=== PATIENT | female | born 2000 | race Caucasian/White ===

== ENCOUNTER 2023-01-06 01:38 | Outpatient (CLI) | payer SELFPAY ==
--- OUTSIDE RECORDS SUMMARY | 2023-02-05 13:20 | XMS_ITS | Patient Health Record ---
Author Name Unknown Organization [facility] Address [address] [place], [place] [id number] Care Team Providers Care Configuration Developer Name Role Phone Amita Dyer Primary Care Provider Irais Brooks Unavailable [phone] ALLERGIES No Known Allergies REASON FOR REFERRAL [...] Notes Problem Anemia (D64.9) Active confirmed Anemia (609717402) Problem Fibromyalgia affecting multiple sites (M79.7) Active confirmed Fibromyalgia (586145573) Problem Abnormal antibody titer (R76.8) Active confirmed Antibody studie s abnormal (505350870) Problem Moderate major depression (F32.1) Active confirmed Moderate major depression (896386) PLAN OF TREATMENT No Information MEDICAL (GENERAL) HISTORY Medical History History ICD Code Moderate major depression F32.1 ADHD-combined type
== END 2023-01-06 01:39 | disposition home or self-care (01) ==
LOC: AMB 02-05 13:17
PROVIDERS: Visit Provider Internal Medicine
DX: F10.129 Alcohol abuse with intoxication, unspecified (principal); F12.10 Cannabis abuse, uncomplicated
CPT/HCPCS: A0425; A0429

== ENCOUNTER 2023-01-06 01:57 | Emergency (ER) | payer SELFPAY ==
--- NOTE | 2023-01-06 02:04 | ED_ITS ---
HPI - General Adult General Stated complaint: ETOH Time Seen by Provider: 01/06/23 02:01 History of Present Illness HPI narrative: Patient is a 22-year-old woman who was brought in intoxicated from [facility]. She days not able to quantify how much he has had drink tonight. She states that she did not have any injuries. She does not believe that she has been assaulted. She is brought in by EMS. She has no physical complaints other than her intoxication. She is quite tearful and remorseful. No further history available although she does admit to history of anxiety depression as well as traumatic brain injury. Review of Systems Status of ROS: Reports: 10 or more systems reviewed and unremarkable except as noted in History and below Exam Narrative: Exam Narrative: EXAM GENERAL: Patient appears to be modestly intoxicated. EYES: No scleral icterus. LYMPH: No supraclavicular or cervical lymphadenopathy. SKIN: Visible skin seen during exam normal or with benign process only. EXT: No dependent lower extremity pedal edema. HEART: Regular rate and rhythm with no murmurs, rubs, or gallops. LUNGS: Clear to auscultation bilaterally with no crackles or wheezes. ABD: Soft, non tender, non distended. PSYCH: Good eye contact, speech is not pressured. Course Course ED Course: Patient seen examined. She appears to be medically stable and will be observed until she can safely be discharged back to campus. No further testing will be needed unless problems develop. We monitoring her vital signs. Medical Decision Making MDM Narrative Medical decision making narrative: Patient is a 22-year-old woman brought in intoxicated from [facility]. She was observed 1st safe amount of time and now is able to care for herself. She does not appear to be otherwise metabolically abnormal or injured. She is able to go back to the campus at this time but has worn as the dangers of heavy drinking. Differential Diagnosis Differential Diagnosis: Metabolic derangement drug abuse alcohol intoxication Discharge Plan Discharge Clinical Impression: Alcohol intoxication Patient Disposition: Home, Self-Care Condition: Stable Instructions: Alcohol Intoxication (ED) Activity Level: No Restrictions Discharge Diet: Regular Stand Alone Forms: Vital [employer]ner[employer] Info Instructions
[2023-01-06 02:19] VITALS: BP 119/89; PULSE 92; RESP 18; TEMP 36.7; O2SAT 98; BMI 21.9
--- OUTSIDE RECORDS SUMMARY | 2023-01-06 02:32 | XMS_ITS | Continuity of Care Document ---
Author Name Unknown Organization [facility]part[facility] Address [address] [place] [id number] Phone Care Team Providers Care First Cook Name Role Phone Eva ROGEScarlet Unavailable Unavailable Allergies, Adverse Reactions, Alerts Substance Reaction Status Criticality No Known Allergies Active No Inform ation Medications Medication Instructions Dosage Effective Dates (start - stop) Status Comments 04/27 (28) 1 mg-20 mcg (21)/75 mg (7) tablet - Active dextroamphetamine-ampheta mine ER 15 mg 24hr capsule,extend release - Active omeprazole 40 mg capsule,delayed release - Active sertraline 100 mg tablet - A ctive Procedures Procedure Date Prophylaxis-child Top Fluoride Varnish;TX Appl Mod 2019 Comprehensive oral evaluation-new or est ablished P Caries Risk Assessment, Moderate 2019 Dental Sealant Exclusion Bitewings-four films Intraoral-periapical first film 020 Intraoral-periapical each additional hue m FLU VACCINE, 3 YRS & >, IM FLU VACC PANDEMIC FLU VACCINE, 3 YRS & >, IM As per patient privacy policy some of the clinical information may not be visible. Advance Directives Directive Yes / No Effective Date File Name No Information Encounters Encounter Description Practice Location Reason(s) For Visit Diagnoses Date Provider Providers Copied on Encounter [facility], [address] [place] [address], [id number], [place] tel:[phone] P [facility] Dental Dental Visit (chief complaint) Chronic gingivitis, plaque inducedOther dental procedure status Eva Novak. [address] [facility], [place], [place], [id number], [place]. tel:[phone] [facility], [address] [place] [address], [id number], [place] tel:[phone] [facility] No Information [facility] Nurse. [address] [place] [address], [id number], [place]. tel:[phone] [facility], [address] [place] [address], [address], [place] tel:[phone] [facility] [place] [facility] No Information [facility] Nurse. [address] [place] [address], [id number], [place]. tel:[phone] [facility], [address] [place] [address], [id number], [place] tel:[phone] [facility] No Information [facility] Nurse. [address] [place] [address], [id number], [place]. tel:[phone] [facility], [address] [place] [address], [id number], [place] tel:[phone] [facility] No Information [facility]. [address] [place] [address], [id number], [place]. Family History Family Member Type Diagnosis Age At Onset No Information Immunizations Vaccine Date Status Comments Flu (split) (3 yrs or older) administered Source: New Immunization Record Influenza (H1N1) virus vaccine, pandemic formulation administered Source: Ne w Immunization Record Flu (split) (3 yrs or older) administered Source: New Immunization Record Hep A (ped/adol, 2 dose) administered [place] rce: New Immunization Record HEP A VAC PED/ADOL administered Note: LA ; Source: New Immunization Record VARICELLA, PED/ADOLESCENT administered No te: RA ; Source: New Immunization Record VARICELLA, PED/ADOLESCENT administered No te: RA ; Source: New Immunization Record INFLUENZA .50 DOSE administered Note: LA ; Source: New Immunization Record DTAP administered Note: RA ; Sour ce: New Immunization Record [id number], PED/ADL administer ed Note: LA ; Source: New Immunization Record INJECTABLE POLIOVIRUS administered Note: RA ; Source: New Immunization Record HIB 3 DOSE SERIES administered Note: RA ; Source: New Immunization Record PCV7, PNEUMOCOCCAL CONJUGATE administered Note: RA ; Source: New Immunization Record DTAP administered Note: LA ; Sour ce: New Immunization Record VARICELLA, PED/ADOLESCENT administered No te: LA ; Source: New Immunization Record [id number], PED/ADL administer ed Note: LA ; Source: New Immunization Record INFLUENZA VACCINE administered Source: Ne w Immunization Record PCV7, PNEUMOCOCCAL CONJUGATE administered Source: New Immunization Record HEP B VACCINE PED/ADOL administered Note: LA ; Source: New Immunization Record HIB 3 DOSE SERIES administered Note: RT ; Source: New Immunization Record DTAP administered Note: LT ; Sour ce: New Immunization Record INJECTABLE POLIOVIRUS administered Note: LT ; Source: New Immunization Record HIB 3 DOSE SERIES administered Note: LT ; Source: New Immunization Record PCV7, PNEUMOCOCCAL CONJUGATE administered Note: LT ; Source: New Immunization Record DTAP administered Note: RT ; Sour ce: New Immunization Record INJECTABLE POLIOVIRUS administered Note: RT ; Source: New Immunization Record PCV7, PNEUMOCOCCAL CONJUGATE administered Note: LT ; Source: New Immunization Record DTAP administered Note: RT ; Sour ce: New Immunization Record INJECTABLE POLIOVIRUS administered Note: RT ; Source: New Immunization Record HIB AND HEP B COMBO administered Note: LT ; Source: New Immunization Record HEP B VACCINE PED/ADOL administered [facility] e: New Immunization Record Payers Payer name Insurance type Covered green party ID Zara cameron(s) [facility] [place] [id number] Social History Type Description Quantity Date Captured Comments Alcohol Use Details Unknown Caffeine Use Details Unknown Tobacco Use Status No Information Smoking Status No Information Sex Female Gender Identity Choose not to disclose Chief Complaint And Reason For Visit From encounter dated '11/16/2019 14:00'. Dental Visit (chief complaint) Plan Of Treatment Date Type Action Status Goal Pneumococcal vaccine due Goal Flouride varnish application . Due on due Goal Tdap. Due on due Goal HPV (1st). Due on 0 due Goal Hep C [id number]. Due on due Goal HIV. Due on due Goal Depression screening. Due on due Goal Nutritional Screening Assess ment. Due on due Goal Self Management Goals. Due o n due Goal Influenza vaccine. Due on due Goal Health Literacy. Due on due Goal Dental exam. Due on 020 due History Of Present Illness Encounter Date Complaint History Of Prese nt Illness Dental Visit Instructions Date Instruction Additional Infor mation No Information Assessments Type Assessment Date No Information Patient Care Teams Name Effective Dates (start - stop) Status Members No Information
--- OUTSIDE RECORDS SUMMARY | 2023-01-06 02:32 | XMS_ITS | Continuity of Care Document ---
Author Name Unknown Organization [facility] Address [address] [facility] [address] [place] [address] Phone Care Team Providers Care Internal Controls Manager Name Role Phone Amita Dyer MD Unavailable Unavailable Allergies, Adverse Reactions, Alerts Substance Reaction Status Criticality No Known Allergies Active No Inform ation Medications Medication Instructions Dosage Effective Dates (start - stop) Status Comments Wellbutrin XL 300 mg 24 hr tablet, extended release Take 1 tablet by mouth once daily - Active Adderall 10 mg tablet take 1 Tablet by oral route every afternoon 10 MG - Active Adderall XR 15 mg capsule,extended release take 1 capsule by oral route every day in the morning upon awakening 15 MG - Active albuterol sulfate HFA 90 mcg/actuation aerosol inhaler INHALE 2 PUFFS BY MOUTH EVERY 4 TO 6 HOURS NEEDED - Active sertraline 100 mg tablet TAKE 1 & 1/2 (ONE & ONE-HALF) TABLETS BY MOUTH ONCE DAILY - Active doxycycline hyclate 100 mg tablet take 1 tablet by oral route 2 times every day 100 MG - Active Microgestin FE 1/20 (28) 1 mg-20 mcg (21)/75 mg (7) tablet Take 1 tablet by mouth once daily - Active take Continuously, skip placebo Zyrtec 10 mg tablet take 1 tablet by oral route every day 10 MG - Active Omeprazole 40 MG Oral Capsule Delayed Release TAKE 1 CAPSULE BY MOUTH ONCE DAILY BEFORE A MEAL - Active Slow Fe 142 mg (45 mg iron) tablet,extended release take 1 Tablet by Oral route 2 times every day 1 Tablet - Active Procedures Procedure Date Office/outpatient visit,est, mod 2022 Office/outpatient visit,est, mod 2022 Office/outpatient visit,est, mod 2021 Office/outpatient visit,est, mod 2021 Preventive checkup, est,18-39 yrs Office/outpatient visit,est, mod 2021 Office/outpatient visit,est, mod 2021 Office/outpatient visit,est, mod 2021 Office/outpatient visit,est, mod 2021 Office/outpatient visit,est, mod 2021 Office/outpatient visit,est, mod 2020 Office/outpatient visit,est, mod 2020 Preventive checkup, est,18-39 yrs Office/outpatient visit,est, high Less Than 24 Hour Notice Office/outpatient visit,est, mod 2020 Office/outpatient visit,est, mod 2020 Office/outpatient visit,est, mod 2019 Office/outpatient visit,est, mod 2019 Office/outpatient visit,est, mod 2019 Preventive checkup, est,18-39 yrs Office/outpatient visit,est, mod 2019 BODY MASS INDEX DOCD Level Of Activity Assess Office/outpatient visit,est, mod 2019 Airway inhalation treatment Office/outpatient visit,est, mod 2019 Office/outpatient visit,est, mod 2018 IMADM ANY ROUTE 1ST VAC/TOX FLU VAC NO PRSV 4 JORGE 3 YRS+ Office/outpatient visit,est, mod 2018 Preventive checkup, est,12-17 yrs Office/outpatient visit,est, mod 2018 Office/outpatient visit,est, mod 2018 Airway inhalation treatment Office/outpatient visit,est, high Office/outpatient visit,est, mod 2018 MENINGOCOCCAL VACCINE, IM IMADM ANY ROUTE 1ST VAC/TOX FLU VAC NO PRSV 4 JORGE 3 YRS+ Office/outpatient visit,est, mod 2017 IMADM ANY ROUTE 1ST VAC/TOX Gardasil 9 Office/outpatient visit,est, mod 2017 Preventive checkup, est,12- yrs Office/outpatient visit,est, mod 2017 Office/outpatient visit,est, mod 2017 Office/outpatient visit,est, mod 2017 Urinalysis, non-automated, w/scope Airway inhalation treatment Office/outpatient visit,est, high Preventive checkup, est,12- yrs Office/outpatient visit,est, mod 2016 Urinalysis, non-automated, w/scope Office/outpatient visit,new, low 2016 Collection Of Venous Blood By Venipunctu re Advance Directives Directive Yes / No Effective Date File Name No Information Encounters Encounter Description Practice Location Reason(s) For Visit Diagnoses Date Provider Providers Copied on Encounter [facility], [address] [place] [address], [id number], [place] tel:[phone] Amita Dyer M.D. No Information 3 Manisha Levi. [address] [place] [address], [address], [id number] , [place]. tel:[phone] Office/outpa tient visit,est, mod [facility], [address] [place] [address], [id number], tel:[phone] Telehealth Virtual Visit (chief complaint) Attention-defi cit hyperactivity disorder, combined type 3 Manisha Levi. [address] [place] [address], [address] [facility], [place], [place], [id number] , [place]. tel: [phone] Referring Provider: Amita Reynolds, [address] [place] [address] [facility], [place], [address] . tel:[phone] [facility], [address] [place] [address], [id number], tel:[phone] Amita Dyer M.D. No Information 3 Manisha Levi. [address] [place] [address], [id number] , . tel: [phone] [facility], [address] [place] [address], [id number], tel:[phone] Amita Dyer M.D. No Information 3 Manisha Levi. [address] [place] [address], [id number] , [place]. tel: [phone] Office/outpa tient visit,est, [facility], [address] [place] [address], [id number], [place] tel:[phone] Telehealth Virtual Visit (chief complaint) Major depressive disorder, single episode, moderateAttent ion-deficit hyperactivity disorder, combined typeFibromyalg iaOther acne 3 Manisha Levi. [address] [place] [address], [id number] , [place]. tel: [phone] Referring Provider: Amita Reynolds, [address] [place] [address] [place] [address], [id number] . tel:[phone] Office/outpa tient visit,[facility], [address] [place] [address], [id number], tel:[phone] Telehealth Virtual visit (chief complaint) COVID-19Other acne 2 Manisha Levi. [address] [place] [address], [place], [place], [id number] , [place]. tel:[phone] Referring Provider: Amita Reynolds, [address] [place] [address] [facility], [place], [address] . tel:[phone] Office/outpa tient visit,[facility], [address] [place] [address], [id number], tel:[phone] Telehealth Virtual Visit (chief complaint) Major depressive disorder, single episode, moderateAttent ion-deficit hyperactivity disorder, combined typeSystemic lupus erythematosus, unspecified 2 Manisha Levi. [address] [place] [address], [address] [place] [address], [id number] , [place]. tel:[phone] Referring Provider: Amita Reynolds, [address] [place] [address] [facility], [place], [address] . tel:[phone] Preventive checkup, [facility],18-39 yrs [facility], [address] [place] [address], [id number], tel:[phone] Amita Dyer M.D. preventive exam - physical (chief complaint) Encounter for general adult medical examination without abnormal findingsMajor depressive disorder, single episode, moderateAttent ion-deficit hyperactivity disorder, combined typeSystemic lupus erythematosus, unspecifiedFib romyalgiaEncnt r screen for infections w sexl mode of transmissAller gic rhinitis 2 Manisha Levi. [address] [place] [address], [address], [id number] , . tel:[phone] Referring Provider: Amita Reynolds, [address] [facility] [address], [place], [address] . tel:[phone] Office/outpa tient visit,[facility], [address] [place] [address], [id number], tel:[phone] Telehealth Virtual Visit (chief complaint) Major depressive disorder, single episode, moderateAttent ion-deficit hyperactivity disorder, combined type 2 Manisha Levi. [address] [place] [address], [address], [place], [place], [id number] , [place]. tel:[phone] Referring Provider: Amita Reynolds, [address] [facility] [address] [facility], [place], [address] . tel:[phone] [facility], [address] [place] [address], [id number], [place] tel:[phone] Amita Dyer M.D. No Information 2 Manisha Levi. [address] [place] [address], [address], [id number] , [place]. tel:[phone] Office/outpa tient visit,[facility], [address] [place] [address], [id number], tel:[phone] Telehealth virtual visit (chief complaint) Major depressive disorder, single episode, moderateAttent ion-deficit hyperactivity disorder, combined type 2 Manisha Levi. [address] [place] [address], [address], [id number] , [place]. [phone] Referring Provider: Amita Reynolds, [address] [facility] [address], [place], [address] . tel:[phone] Office/outpa tient visit,[facility], [address] [place] [address], [id number], [place] tel:[phone] Telehealth Virtual Visit (chief complaint) Major depressive disorder, single episode, moderateSystem ic lupus erythematosus, unspecifiedFib romyalgia 2 Manisha Levi. [address] [facility], [address], [place], [place], [id number] , [place]. tel:[phone] Referring Provider: Amita Reynolds, [address] [place] [address] [facility], [place], [address] . tel:[phone] Office/outpa tient visit,[facility], [address] [place] [address], [id number], [place] tel:[phone] Telehealth Virtual visit (chief complaint) Major depressive disorder, single episode, moderateAttent ion-deficit hyperactivity disorder, combined typeSystemic lupus erythematosus, unspecifiedFib romyalgia 2 Manisha Levi. [address] [place] [address], [address], [place], [place], [id number] , [place]. tel:[phone] Referring Provider: Amita Reynolds, [address] [place] [address] [facility], [place], [address] . tel:[phone] Office/outpa tient visit,[facility], [address] [place] [address], [id number], tel:[phone] Telehealth Virtual visit (chief complaint) Major depressive disorder, single episode, moderateAttent ion-deficit hyperactivity disorder, combined type 1 Manisha Levi. [address] [facility], [address], [place], [place], [id number] , [place]. [phone] Referring Provider: Amita Reynolds, [address] [facility] [address], [place], [address] . tel:[phone] Office/outpa tient visit,[facility], [address] [place] [address], [id number], tel:[phone] Telehealth Virtual Visit (chief complaint) Major depressive disorder, single episode, moderateAttent ion-deficit hyperactivity disorder, combined typeFibromyalg iaAnemia, unspecified 1 Manisha Levi. [address] [facility], [address], [place], [place], [id number] , . tel:[phone] Referring Provider: Amita Reynolds, [address] [place] [address] [address], [place], [address] . tel:[phone] Preventive checkup, est,18-40 yrs [facility], [address] [place] [address], [id number], tel:[phone] Amita Dyer M.D. preventive exam - physical (chief complaint) Encounter for general adult medical examination without abnormal findingsMajor depressive disorder, single episode, moderateAttent ion-deficit hyperactivity disorder, combined typeDysmenorrh eaGERD w/o esophagitisVom itingAnemia, unspecifiedAll ergic rhinitisFibrom yalgia 1 Manisha Levi. [address] [place] [address], [address], [id number] , . tel:[phone] Referring Provider: Amita Reynolds, [address] [place] [address] [place] [address], [address] . tel:[phone] [facility], [address] [place] [address], [id number], tel:[phone] Amita Dyer M.D. No Information 1 Manisha Levi. [address] [place] [address], [id number] , . tel:[phone] Referring Provider: Amita Reynolds, [address] [place] [address], [address] . tel:[phone] Office/outpa tient visit,[facility], [address] [place] [address], [id number], [place] tel:[phone] Amita Dyer M.D. Leg Pain (chief complaint) MyalgiaParesth esia of skinLow back pain Ignacio-2 1 Manisha Levi. [address] [place] [address], [place], [place], [id number] , [place]. tel:[phone] Referring Provider: Amita Reynolds, [address] [place] [address], [place], [address] . tel:[phone] Office/outpa tient visit,[facility], [address] [place] [address], [id number], [place] tel:[phone] Telehealth depression (chief complaint) Major depressive disorder, single episode, moderateAttent ion-deficit hyperactivity disorder, combined type Fe-0 1 Manisha Levi. [address] [place] [address], [id number] , [place]. tel:[phone] Referring Provider: Amita Reynolds, [address] [place] [address] [facility], [place], [address] . tel:[phone] Office/outpa tient visit,[facility], [address] [place] [address], [id number], tel:[phone] Amita Dyer M.D. vaginal sores (chief complaint) DysuriaCandidi asis of vulva and vagina 0 Manisha Levi. [address] [place] [address], [id number] , [place]. tel:[phone] Referring Provider: Amita Reynolds, [address] [place] [address], [place], [address] . tel:[phone] Office/outpa tient visit,[facility], [address] [place] [address], [id number], [place] tel:[phone] Telehealth Virtual visit (chief complaint) Acute tonsillitis, unspecified 0 Manisha Levi. [address] [facility], [address], [place], [place], [id number] , [place]. tel:[phone] Referring Provider: Amita Reynolds, [address] [place] [address] [address], [place], [address] . tel:[phone] Office/outpa tient visit,[facility], [address] [place] [address], [id number], [place] tel:[phone] Telehealth Virtual Visit (chief complaint) Attention-defi cit hyperactivity disorder, combined typeDysmenorrh eaAcute tonsillitis, unspecified 0 Manisha Levi. [address] [place] [address], [address], [place], [place], [id number] , [place]. [phone] Referring Provider: Amita Reynolds, [address] [place] [address] [facility], [place], [address] . tel:[phone] Preventive checkup, [facility],18-39 yrs [facility], [address] [place] [address], [id number], [place] tel:[phone] Amita Dyer M.D. preventive exam - physical (chief complaint) Encntr for general adult medical exam w/o abnormal findingsMajor depressive disorder, single episode, moderateAttent ion-deficit hyperactivity disorder, combined typeAcneDysmen orrheaImpacted cerumen, right earBody mass index (BMI) 21.0-21.9, adult Aug- 0 Manisha Levi. [address] [place] [address], [address], [place], [id number] , . tel:[phone] Referring Provider: Amita Reynolds, [address] [place] [address], [place], [address] . tel:[phone] Office/outpa tient visit,[facility], [address] [place] [address], [id number], tel:[phone] Amita Dyer M.D. Follow Up of meds (chief complaint) Major depressive disorder, single episode, moderateAttent ion-deficit hyperactivity disorder, combined typeGERD w/o esophagitis 0 Manisha Levi. [address] [place] [address], [id number] , [place]. tel:[phone] Referring Provider: Amita Reynolds, [address] [place] [address], [place], [address] . tel:[phone] Office/outpa tient visit,[facility], [address] [place] [address], [id number], tel:[phone] Amita Dyer M.D. cough (chief complaint) Acute bronchitis, unspecifiedImp acted cerumen, right earPallor 0 Manisha Levi. [address] [place] [address], [place], [place], [id number] , [place]. [phone] Referring Provider: Amita Reynolds, [address] [place] [address], [place], [address] . tel:[phone] Office/outpa tient visit,[facility], [address] [place] [address], [id number], [place] tel:[phone] Amita Dyer M.D. Follow Up of anxiety/dep ression (chief complaint)s inus infection (chief complaint) Major depressive disorder, single episode, moderateAttent ion-deficit hyperactivity disorder, combined typeAcute sinusitis, unspecified 9 Manisha Levi. [address] [place] [address], [address] [facility], [place], [place], [id number] , . [phone] Referring Provider: Amita Reynolds, [address] [place] [address], [place], [address] . tel:[phone] Office/outpa tient visit,[facility], [address] [place] [address], [id number], [phone] Amita Dyer M.D. depressed (chief complaint) Major depressive disorder, single episode, moderate 9 Manisha Levi. [address] [place] [address], [id number] , [place]. tel:[phone] Referring Provider: Amita Reynolds, [address] [place] [address], [place], [address] . tel:[phone] Preventive checkup, [facility],12-17 yrs [facility], [address] [place] [address], [id number], tel:[phone] Amita Dyer M.D. Well child (chief complaint) Encntr for routine child health exam w/o abnormal findingsMajor depressive disorder, single episode, moderateAttent ion-deficit hyperactivity disorder, combined typeGERD w/o esophagitisLum p in the left breast 9 Manisha Levi. [address] [place] [address], [id number] , [place]. tel:[phone] Referring Provider: Amita Reynolds, [address] [place] [address], [place], [address] . tel:[phone] Office/outpa tient visit,[facility], [address] [place] [address], [id number], tel:[phone] Amita Dyer M.D. Follow Up of depression (chief complaint) Major depressive disorder, single episode, moderateAttent ion-deficit hyperactivity disorder, combined typeLump in the left breast 9 Manisha Levi. [address] [place] [address], [id number] , . tel:[phone] Referring Provider: Amita Reynolds, [address] [place] [address], [address] . tel:[phone] Office/outpa tient visit,[facility], [address] [place] [address], [id number], [place] tel:[phone] Amita Dyer M.D. Cough (chief complaint) Acute bronchitis, unspecifiedMaj or depressive disorder, single episode, moderatePneumo darci 9 Manisha Levi. [address] [place] [address], [id number] , [place]. [phone] Referring Provider: Amita Reynolds, [address] [place] [address], [address] . tel:[phone] Office/outpa tient visit,[facility], [address] [place] [address], [id number], [place] tel:[phone] Amita Dyer M.D. Follow Up of Anxiety (chief complaint) Major depressive disorder, single episode, moderateAttent ion and concentration deficitGERD w/o esophagitis 9 Manisha Levi. [address] [place] [address], [id number] , [place]. tel:[phone] Referring Provider: Amita Reynolds, [address] [place] [address], [address] . tel:[phone] Office/outpa tient visit,[facility], [address] [place] [address], [id number], tel:[phone] Amita Dyer M.D. Meds Check (chief complaint) Panic attackAttentio n and concentration deficitGERD w/o esophagitisEnc ounter for immunizationMa chuy depressive disorder, single episode, moderate 8 Manisha Levi. [address] [place] [address], [id number] , [place]. tel:[phone] Referring Provider: Amita Reynolds, [address] [place] [address], [place], [address] . tel:[phone] Office/outpa tient visit,[facility], [address] [place] [address], [id number], tel:[phone] Amita Dyer M.D. well child exam (chief complaint) Encntr for routine child health exam w/o abnormal findingsMajor depressive disorder, single episode, unspecifiedGER D w/o esophagitisAcn e 8 Manisha Levi. [address] [place] [address], [id number] , [place]. tel:[phone] Referring Provider: Amita Reynolds, [address] [place] [address], [address] . tel:[phone] Office/outpa tient visit,[facility], [address] [place] [address], [id number], [place] tel:[phone] Amita Dyer M.D. vomiting (chief complaint) Right lower quadrant painVomiting 8 Manisha Levi. [address] [place] [address], [id number] , [place]. tel:[phone] Referring Provider: Amita Reynolds, [address] [place] [address], [address] . tel:[phone] Office/outpa tient visit,[facility], [address] [place] [address], [id number], tel:[phone] Amita Dyer M.D. Follow Up of Sertaline (chief complaint) Major depressive disorder, single episode, unspecifiedGER D w/o esophagitisAcn e 8 Manisha Levi. [address] [place] [address], [id number] , . tel:[phone] Referring Provider: Amita Reynolds, [address] [place] [address], [address] . tel:[phone] Office/outpa tient visit,[facility], [address] [place] [address], [id number], tel:[phone] Amita Dyer M.D. Prod cough/sinus (chief complaint) Acute sinusitis, unspecifiedAcn e 8 Manisha Levi. [address] [place] [address], [id number] , . tel:[phone] Referring Provider: Amita Reynolds, [address] [place] [address], [address] . tel:[phone] Office/outpa tient visit,[facility], [address] [place] [address], [id number], tel:[phone] Amita Dyer M.D. Follow Up of sertaline (chief complaint)c ongestion (chief complaint)p ossible yeast infection (chief complaint) DepressionAcut e bronchitis, unspecifiedGER D w/o esophagitisDys uriaCandidal vulvovaginitis 7 Manisha Levi. [address] [place] [address], [id number] , . [phone] Referring Provider: Amita Reynolds, [address] [place] [address] [facility], [place], [address] . tel:[phone] Preventive checkup, est,12-17 yrs [facility], [address] [place] [address], [id number], tel:[phone] Amita Dyer M.D. well child exam (chief complaint) Encntr for routine child health exam w/o abnormal findingsVomiti ngDepression Manisha Levi. [address] [place] [address], [id number] , . [phone] Referring Provider: Amita Reynolds, [address] [place] [address], [place], [address] . tel:[phone] Office/outpa tient visit,[facility], [address] [place] [address], [id number], tel:[phone] Amita Dyer M.D. vomiting (chief complaint) Urinary tract infection, site not specifiedVomit ingUpper abdominal pain Manisha Levi. [address] [place] [address], [id number] , . tel:[phone] Referring Provider: Amita Reynolds, [address] [place] [address] [facility], [place], [address] . tel:[phone] Family History Family Member Type Diagnosis Age At Onset Mother Problem Anxiety Father Problem (finding) Family history unknown Maternal grandfather Problem (finding) Cardiovascular disease 40 Mother Problem (finding) malignant neop lasm of breast in first degree relative Family h/o Problem (finding) malignant neoplasm of o vary Immunizations Vaccine Date Status Comments SARS-COV-2 (COVID-19) vaccin e, mRNA, spike protein, LNP, preservative free, 30 mcg/0.3mL dose (State) administered Source: Other Provid er SARS-COV-2 (COVID-19) vaccin e, mRNA, spike protein, LNP, preservative free, 30 mcg/0.3mL dose (Pfizer) administered Source: Other Provid er SARS-COV-2 (COVID-19) vaccin e, mRNA, spike protein, LNP, preservative free, 30 mcg/0.3mL dose (State) administered Source: Other Provid er Fluzone preservative free administered So urce: New Immunization Record Influenza, injectable, quadrivalent, preservative free, split virus, 3 years and older, Fluzone Quad Y administered Source: N ew Immunization Record Meningococcal MCV4O administered Source: New Immunization Record HPV (9-valent) administered Source: New I mmunization Record Human Papillomavirus 9-jeffrey t vaccine administered Source: Other Provid er Meningococcal MCV4O administered Source: Other Provider Tdap administered Source: Other P rovider hepatitis A vaccine, pediatric/adolescent dosage, 2 dose schedule administered Source: Other Provid er varicella virus vaccine administered Sour ce: Other Provider Hep A (ped/adol, 2 dose) administered Helena rce: Other Provider measles, mumps and rubella virus vaccine administered Source: Other Provid er poliovirus vaccine, inactivated administe red Source: Other Provider diphtheria, tetanus toxoids and acellular pertussis vaccine administered Source: Othe r Provider diphtheria, tetanus toxoids and acellular pertussis vaccine administered Source: Othe r Provider pneumococcal conjugate vacci ne, 7 valent administered Source: Other Provid er Varicella administered Source: Other P rovider Haemophilus influenzae type b vaccine, conjugate unspecified formulation administered Source: Other Provid er diphtheria, tetanus toxoids and acellular pertussis vaccine administered Source: Othe r Provider MMR administered Source: Other P rovider pneumococcal conjugate vacci ne, 7 valent administered Source: Other Provid er hepatitis B vaccine, pediatr ic or pediatric/adolescent dosage administered Source: O ther Provider Haemophilus influenzae type b vaccine, conjugate unspecified formulation administered Source: Other Provid er poliovirus vaccine, inactivated administe red Source: Other Provider pneumococcal conjugate vacci ne, 7 valent administered Source: Other Provid er Haemophilus influenzae type b vaccine, conjugate unspecified formulation administered Source: Other Provid er poliovirus vaccine, inactivated administe red Source: Other Provider diphtheria, tetanus toxoids and acellular pertussis vaccine administered Source: Othe r Provider pneumococcal conjugate vacci ne, 7 valent administered Source: Other Provid er hepatitis B vaccine, pediatr ic or pediatric/adolescent dosage administered Source: O ther Provider Hib (PRP-T) administered Source: Other P rovider Polio, Inactive administered Source: Othe r Provider DTaP administered Source: Other P rovider Hep B (ped/adol, 3 dose) administered Helena rce: Other Provider Payers Payer name Insurance type Covered republican ID Authoriza tion(s) [place] [employer] [id number] [facility] BL [id number] [id number] [id number] BL [id number] Social History Type Description Quantity Date Captured Comments Alcohol Use Details Caffeine Use Details coffee and green tea 2 cups per day A Tobacco Use Status Current non-smoker Smoking Status never smoker Sex Female Chief Complaint And Reason For Visit No Information Reason For Referral Reason For Referral No Information Plan Of Treatment Date Type Action Status Goal Tdap due Goal H&P. Due on due Goal Hepatitis C scre ening. Due on due Goal HPV (1st) due Goal Depression scree john. Due on due Goal HPV (2nd) due Goal Influenza vaccin e. Due on due Goal TAX ECONOMIST exam. Due on due Goal PAP. Due on due Goal Unhealthy drug u se screening. Due on due Goal Depression scree john. Due on due Goal Unhealthy drug u se screening. Due on due Goal Influenza vaccin e. Due on due Goal HPV (2nd) due Goal Hepatitis C scre ening. Due on due Goal HPV (1st) due Goal TAX ECONOMIST exam. Due on due Goal PAP. Due on due Goal H&P. Due on due Goal Tdap due Goal Hepatitis C scre ening. Due on due Goal H&P. Due on due Goal TAX ECONOMIST exam. Due on due Goal Tdap due Goal HPV (1st) due Goal Influenza vaccin e. Due on due Goal Depression scree john. Due on due Goal PAP. Due on due Goal HPV (2nd) due Goal Unhealthy drug u se screening. Due on due Goal TAX ECONOMIST exam. Due on due Goal PAP. Due on due Goal HPV (1st) due Goal HPV (2nd) due Goal Unhealthy drug u se screening. Due on due Goal Hepatitis C scre ening. Due on due Goal Influenza vaccin e. Due on due Goal Tdap due Goal H&P. Due on due Goal Depression scree john. Due on due Goal Hepatitis C scre ening. Due on due Goal HPV (2nd) due Goal TAX ECONOMIST exam. Due on due Goal Tdap due Goal Unhealthy drug u se screening. Due on due Goal PAP. Due on due Goal H&P. Due on due Goal Depression scree john. Due on due Goal HPV (1st) due Goal Influenza vaccin e. Due on due Goal Depression scree john. Due on due Goal HPV (2nd) due Goal Unhealthy drug u se screening. Due on due Goal TAX ECONOMIST exam. Due on due Goal HPV (1st) due Goal Fluoride varnish application. Due on due Goal H&P. Due on due Goal Hepatitis C scre ening. Due on due Goal Tdap due Goal Influenza vaccin e. Due on due Goal Tdap due Goal H&P. Due on due Goal Hepatitis C scre ening. Due on due Goal HPV (2nd) due Goal Unhealthy drug u se screening. Due on due Goal TAX ECONOMIST exam. Due on due Goal Fluoride varnish application. Due on due Goal Influenza vaccin e. Due on due Goal Depression scree john. Due on due Goal HPV (1st) due Goal Tdap due Goal TAX ECONOMIST exam. Due on due Goal HPV (1st) due Goal Unhealthy drug u se screening. Due on due Goal H&P. Due on due Goal Fluoride varnish application. Due on due Goal Influenza vaccin e. Due on due Goal HPV (2nd) due Goal Depression scree john. Due on due Goal Hepatitis C scre ening. Due on due Goal Depression scree john. Due on due Goal Influenza vaccin e. Due on due Goal TAX ECONOMIST exam. Due on due Goal Fluoride varnish application. Due on due Goal Hepatitis C scre ening. Due on due Goal H&P. Due on due Goal HPV (1st) due Goal Tdap due Goal HPV (2nd) due Goal Unhealthy drug u se screening. Due on due Goal Influenza vaccin e. Due on due Goal Depression scree john. Due on due Goal Fluoride varnish application. Due on due Goal Tdap due Goal Pneumococcal vaccine due Goal H&P. Due on due Goal TAX ECONOMIST exam. Due on due Goal HPV (2nd) due Goal HPV (1st) due Goal HPV (2nd) due Goal Influenza vaccin e. Due on due Goal Pneumococcal vaccine due Goal TAX ECONOMIST exam. Due on due Goal Fluoride varnish application. Due on due Goal HPV (1st) due Goal H&P. Due on due Goal Tdap due Goal Depression scree john. Due on due Goal Influenza vaccin e. Due on due Goal Fluoride varnish application. Due on due Goal Tdap due Goal H&P. Due on due Goal HPV (2nd) due Goal Pneumococcal vaccine due Goal Depression scree john. Due on due Goal TAX ECONOMIST exam. Due on due Goal HPV (1st) due Goal Fluoride varnish application. Due on due Goal HPV (1st) due Goal Tdap due Goal TAX ECONOMIST exam. Due on due Goal Influenza vaccin e. Due on due Goal HPV (2nd) due Goal H&P. Due on due Goal Depression scree john. Due on due Goal Pneumococcal vaccine due Goal Influenza vaccin e. Due on due Goal Pneumococcal vaccine due Goal Fluoride varnish application. Due on due Goal Tdap due Goal Depression scree john. Due on due Goal HPV (2nd) due Goal H&P. Due on due Goal HPV (1st) due Goal TAX ECONOMIST exam. Due on due Goal HPV (1st) due Goal Pneumococcal vaccine due Goal Depression scree john. Due on due Goal TAX ECONOMIST exam. Due on due Goal HPV (2nd) due Goal Fluoride varnish application. Due on due Goal Tdap due Goal Influenza vaccin e. Due on due Goal H&P. Due on due Goal Fluoride varnish application. Due on due Goal Depression scree john. Due on due Goal TAX ECONOMIST exam. Due on due Goal H&P. Due on due Goal Pneumococcal vaccine due Goal Tdap due Goal HPV (2nd) due Goal HPV (1st) due Goal Influenza vaccin e. Due on due Goal H&P. Due on due Goal TAX ECONOMIST exam. Due on due Goal Pneumococcal vaccine due Goal Influenza vaccin e. Due on due Goal Depression scree john. Due on due Goal Tdap due Goal HPV (1st) due Goal Fluoride varnish application. Due on due Goal HPV (2nd) due Goal Tdap due Goal TAX ECONOMIST exam. Due on due Goal H&P. Due on due Goal Fluoride varnish application. Due on due Goal HPV (1st) due Goal Influenza vaccin e. Due on due Goal Depression scree john. Due on due Goal Pneumococcal vaccine due Goal HPV (2nd) due Goal HPV (1st) due Goal Influenza vaccin e. Due on due Goal Depression scree john. Due on due Goal Fluoride varnish application. Due on due Goal Pneumococcal vaccine due Goal TAX ECONOMIST exam. Due on due Goal H&P. Due on due Goal HPV (2nd) due Goal Tdap due Goal HPV (2nd) due Goal Fluoride varnish application. Due on due Goal Pneumococcal vaccine due Goal Depression scree john. Due on due Goal HPV (1st) due Goal TAX ECONOMIST exam. Due on due Goal Tdap due Goal H&P. Due on due Goal Influenza vaccin e. Due on due Goal Depression scree john. Due on due Goal Influenza vaccin e. Due on due Goal Fluoride varnish application. Due on due Goal H&P. Due on due Goal HPV (2nd) due Goal Pneumococcal vaccine due Goal Tdap due Goal TAX ECONOMIST exam. Due on due Goal HPV (1st) due Goal HPV (2nd) due Goal Influenza vaccin e. Due on due Goal Fluoride varnish application. Due on due Goal Pneumococcal vaccine due Goal H&P. Due on due Goal Tdap due Goal TAX ECONOMIST exam. Due on due Goal Depression scree john. Due on due Goal HPV (1st) due Goal HPV (2nd) due Goal Influenza vaccin e. Due on due Goal Tdap due Goal Fluoride varnish application. Due on due Goal HPV (1st) due Goal Depression scree john. Due on due Goal Pneumococcal vaccine due Goal HPV (2nd) due Goal Tdap due Goal Depression scree john. Due on due Goal Pneumococcal vaccine due Goal Influenza vaccin e. Due on due Goal Fluoride varnish application. Due on due Goal HPV (1st) due Goal HPV (1st) due Goal Pneumococcal vaccine due Goal HPV (2nd) due Goal Tdap due Goal Fluoride varnish application. Due on due Goal Influenza vaccin e. Due on due Goal Depression scree john. Due on due Goal HPV (1st) due Goal Tdap due Goal HPV (2nd) due Goal Depression scree john. Due on due Goal Fluoride varnish application. Due on due Goal Influenza vaccin e. Due on due Goal Pneumococcal vaccine due Goal HPV (1st) due Goal Pneumococcal vaccine due Goal Tdap due Goal HPV (2nd) due Goal Depression scree john. Due on due Goal Influenza vaccin e. Due on due Goal Fluoride varnish application. Due on due Goal Depression scree john. Due on due Goal Tdap due Goal Pneumococcal vaccine due Goal HPV (2nd) due Goal Influenza vaccin e. Due on due Goal HPV (1st) due Goal Fluoride varnish application. Due on due Goal HPV (1st) due Goal Depression scree john. Due on due Goal Influenza vaccin e. Due on due Goal Fluoride varnish application. Due on due Goal Pneumococcal vaccine due Goal HPV (2nd) due Goal Tdap due Referral Ordered: PABLITO KNUTSON -Gastroenterology - Pediatric (related to Vomiting) ordered Referral Ordered: Mariposa Simons (related to Depression) ordered Referral Referred To: Mariposa Simons Ordered: Referrals: Mariposa Simons. Consult ordered Referral Referred To: PABLITO KNUTSON [address] [place] [address], [phone] Ordered: Referrals: Gastroenterology - Pediatric. PABLITO KNUTSON. Consult ordered Future Order: Radiology Order east Ultrasound (unilateral or bilateral) ([id number]), Ordered on: Ordered History Of Present Illness Encounter Date Complaint History Of Prese nt Illness Virtual Visit Patient is here for follow up meds . Virtual Visit done using HIPPAA compliant software. Patient gives verbal consent for visit.Doing great - starting finals this weekLeaving for [place] mid September for analysis internship for 8 weeksUsing addl Adderall when needed - has addl left Virtual Visit Patient is here for follow up meds . Virtual Visit done using HIPPAA compliant software. Patient gives verbal consent for visit.-Patient is doing well. Now takes night class at school and could really use short acting insulin in afternoon. Taking Adderall XR 15 mg daily. Feels that Wellbutrin and Zoloft combination works well now. Planning to spent summer in [place], got excepted for analysis internship in [place].-Saw director of curriculum and started Doxycycline 4 days ago for acne. Using topical medication for angular cheilitis and helping. Virtual visit Patient is here for positive covid test. Virtual visit done using HIPAA compliant software. Patient gives verbal consent for visit.-Congested, has low grade fever and muscle aches. Has a cough but no problems breathing. Has been drinking fluids and drinking Theraflu. Came home from school 2 days ago and got sick same day. Still has one final to complete at home.-She is not on any medications for Lupus. Also worried about cystic acne lesions with scarring on her face. Has had boils with ?fistulas in her groin that get painful at times. Would like to see dermatology. Virtual Visit Patient is here for follow up meds. Virtual Visit done using HIPPAA compliant software. Patient gives verbal consent for visit.Feeling great - meds working really well - likes adjustmentSchool going wellHas lost 10lb with eating better and more motivationStill staying up late - sleeping okADD stable preventive exam - physical Here for physicalNot doing well - more depressed - crying a lot tim at night - still having nightmares - feels worse on higher dose of Zoloft - don't think helpedWorked at summer campWorking out - some cardioDiet healthyStarted drinking alcohol and smoking marijuana at school - was binge drinking at school but has cut down No period with continuous BCP Having wheezing when around friend's cat - some seasonal allergies as wellTook Plaquenil but gained weight on meds and didn't help but also was on Cymbalta at same time and didn't tolerate - still having sensitivity in legs/arms/back - feels sore in legs tim - worse around period - no joint painsHad UTI at school twice Virtual Visit Patient is here for follow up meds. Virtual Visit done using HIPPA compliant software. Patient gives verbal consent for visit.-Patient is doing better with Wellbutrin but it seems to quach off in the evening and mood lower then. Has been having nightmares almost nightly for last 2 weeks-not sure if related to Wellbutrin. No other adverse effects with Wellbutrin. She denies taking any other drugs other than what rx'd. virtual visit Patient is here for medication follow up. Virtual visit done using HIPAA compliant software. Patient gives verbal consent for visit.-Feeling better with Zoloft but still lacks motivation. Getting up in the morning, school work--everything is difficult for her still. Would like to add Wellbutrin as discussed previously. Adderall works well. Has finals next week then will be done for the summer. Plans to travel to with mom and work on the contract job with her. Will spend a month there then back home to spend time with friends. Virtual Visit Patient is here for follow up meds. Virtual visit done due to Covid 19 pandemic. Patient gives verbal consent for visit.-Patient is not doing well. Feeling severely depressed with no motivation to do anything. Feels Cymbalta is not working at all. Wants to switch to Sertraline again. At this time mental health more important to her than pain control with Cymbalta. She has had suicidal thought but no plan and not acted. Not seeing counsellor, he retired. Her family and friends supportive. They make sure she eats and gets out of her room. Grades are good and Adderall seems to be working well. Virtual visit Pt here for med follow up. Virtual visit done due to Covid-19 pandemic. Pt gives verbal consent for virtual visitSchool going well - scary with COVID issues and high numbers at schoolHas gained 25 lb since starting Plaquenil and Celebrex - feels better on meds but weight is frustrating - appetite is much higher - hard on college campus - trying to make good choicesMoods fair - still extreme mood swings - dips at night and feels depressed for last few months - not sure Cymbalta working - overall feels doing well - not seeing counselor but feels doing well working with advisorADD stable - doing well at school Virtual visit Pt here for med follow up. Virtual visit done due to Covid-19 pandemic. Pt gives verbal consent for virtual visit.-Patient is doing much better with higher dose of Cymbalta. Denies side effects. Get counselling through school and doing well at school. Had Covid last month -never had symptoms. Virtual Visit Patient is here for follow up meds. Virtual visit done due to Covid 19 pandemic. Patient gives verbal consent for visit.-Patient is home right now. Exposed to friend with Covid and tested pos beginning of this month. Asymptomatic. Just done with quarantine. Has been anxious and more depressed, especially during quarantine. Has been crying frequently. She is behind on her class work. Going back to School 01/24. Has been seeing Dr Trivedi, pain is under good control. Taking Plaquenil and Celebrex. Taking Cymbalta daily and has been taking iron supplement twice a day for close to 2 mos. Still feeling tired. preventive exam - physical --Melissa mon is doing fair. Was a counsellor at day camp during summer. Worked the [employer]--did a lot of jumping and had fun. She is leaving for college ([place], [place]) next week. Last year went well. Still in daily pain--all muscles hurt. Saw Dr Trivedi last month and had labs but no f/u yet. Was given Prednisone for 7 days and did not help pain. No joint pain, swelling or stiffness. Has been sleeping a lot, still tired. Thinks gained weight and bloated last 2-3 weeks. Takes Ibuprofen or Naproxen for muscle pain but no significant relief. Appetite decreased due to nausea lately, vomiting once a week as before. Has been taking Omeprazole 20 mg instead of 40. Has had EGD a while ago at [facility]. -Depression under fairly good control with Zoloft but missed at least 3 days, ran out. Takes OCPs for painful periods. Does not get significant bleeding now w periods. Notes still gets more muscle pain and some cramping during period week. Leg Pain Onset: 1 month a go. It occurs constantly. Context: there is no injury. Associated symptoms include numbness and tingling in the legs. Additional information: mid lower back pain. - legs feels like muscles sore after working out - occ legs fall asleep - occ some low back painPain to touch of muscles - not really doing exerciseNo significant joint pain - no leg swellingDiet not as healthy - too much junk food - does eat fruits/veggiesOcc blotches on legs when standing - lasts 5 minutesPain affecting ability to walk/sleepDid have leg cramps at the beginning depression Patient is here for follow up meds. Virtual visit done due to Covid-19 virus. Patient gives verbal consent for visit.Doing well at school - hybrid classes Moods overall stableTried additional dose wasn't as helpful - feels XR dose lasts 8-9 hours but 2nd dose didn't help much - wondering if dose too lowPeriods much improved - much less cramps - flow light vaginal sores Patient has been having pain and vaginal lesions for past 6-8 weeks. Never had vaginal intercourse. But had oral sex, last time 2 mos ago. Cuts in vaginal area on and off. Area painful and itchy. No abnormal discharge. On her period now. Has had vaginal itching and burning. Really hurts when urinates. Virtual visit Pt here due to c ont sx of sore throat w/white spots. Took Z Pack 02-23-2020 to 02-27-2020. Had temp last night 99.6 & fatigue. Pt here for virtual visit due to COVID 19 virus. Pt gives verbal consent for virtual visitSore throat much improved but still slt pain Still low grade fever 99-100Feeling fatiguedSlt ear pain persistent but betterSome headache and dec tasteDid COVID test at school which was negative last week Virtual Visit Patient is here for follow up meds. Virtual visit done due to Covid-19 virus. Patient gives verbal consent for visit.[facility] [place]. Sick with sore throat --went to urgent care and to start antibiotic today. Denies cough, fever. Will get COVID test in 2 days at school, tests regularly. -She is requesting short acting Adderall in addition to extended release to help study some afternoons and cram for tests. Tried to arrange her school schedule in am but still needs to study some afternoons. Would take short active med as needed. -Doing well with OCPs, periods regular and cramps are better. Would like to continue. preventive exam - physical Here for physicalGoing to [facility] in [place] - political science/economics Feels moods stable with ZoloftAttention good with Adderall - scheduled morning/early afternoon classes for collegeStkarmanos cancer centerh issues better but needing Prilosec 40mg daily Having severe menstrual cramps with periods last 3 monthsMore acne on back and legs - topical treatments not workingDiet fairly - appetite FitStarhow choir at school Follow Up of meds Patient is fox thao. Anxiety and depression under good control with Zoloft. Not doing well academically. Initially felt Adderall XR 10 mg works well, now gets distracted easily when does homework. Feels wears off by early evening. Failing math. Really worried about her grades. In process of applying for colleges. Was accepted at [employer] but would like to go to college on [facility]. cough Onset: 2 weeks a go. Associated symptoms include chills, fatigue and night sweats. Additional information: bilateral ear pain.Sinus infection in March ?did not clear up completely, did not take Augmentin as prescribed-skipped doses. Not sure which symptoms still had then. [place] chills, muscle aches and vomited New Year's brenden. No fever. Then developed cough, R ear pain. Has decreased hearing R ear. Tried otc cough medication and occasional Ibuprofen. Missed school, 1/2 day yesterday and today. Follow Up of anxiety/depression Here for f/u anxiety/depressionStarted Wellbutrin and took for 2 weeks but then hasn't taken consistently - was also taking for focus only School going great - has all A's - finishing finals this weekStill feeling depressed and tired frequently - feels Wellbutrin caused more fatigueAnxiety at times - slt better Started seeing counselor sinus infection c/o 10 day h/o s ore throat - congestion - ear pressureGreen nasal discharge Sinus pressure and coughDoesn't feel sick Feels not getting better depressed Patient has had no appetite for past 2 weeks. She does not know why she is depressed. She has missed school due to not being able to get out of bed, 4 days this week. Cried at school 11/12-had to leave. She's been stressed about college applications, is done submitting them now. Takes Zoloft daily. Doing well with Adderall, helped to get her grades up, feels a big difference and feels performing at her full potential. Has been getting regular counselling, her counsellor is recovering from hip replacement past 2 weeks. Well child Patient is doing well. Has been studying for ACT and visited colleges this summer. Not sure about what to study, wants to pick a good school first. Going into twelves grade. Will continue with form of physical dense at school this year in place of PE. --Feels stable with Zoloft 100. Seeing counsellor every week. Tried Concerta as needed when studied for tests and helped some but not as well as regular Ritalin. Concerta also some days interfered with her sleep. 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 Has been sick since 3/3 had fever, then felt better. Cough worsen since, stayed home Fru 06/13 back to school Saturday and today--was sent home by the school nurse. Not taking anything for cough. Associated symptoms include wheezing. Additional information: SOB.--Tolerating Wellbutrin well, initially felt better with affect but now feels flat again. Has been on Wellbutrin for 3 weeks. Mood and anxiety seems to be controlled. Follow Up of Anxiety Patient's Z oloft dose increased 03/25 due to Panic attack at school. She initially did well but for last month has been feeling flat/apathic, sleeping more and not concentrating at school. Anxiety is better controlled, has not had panic attacks. She gets accomodation at school and it works for her. Sees therapist once a week most of the time. Meds Check Patient has had challenging few months. Her grandfather and she and her mother had to stay in [place] for a month to help grandmother. Carmela missed a lot of school. They brought her grandmother here and she lives with them. --Patient has been more anxious and had panic attack at school 3 weeks ago. She seemed to have gone to catatonic state and took hours to get back to normal. She has been better since. Catching up at school and seeing her therapist regularly again. Her mood has been affected by her worsening grades. She is getting help at school but complaints of problems concentrating. Her therapist thinks maybe she has elements of ADHD or PTSD following traumatic brain injury.--No problems sleeping or changes in appetite. She denies any thoughts of self harm. Gets upper abdominal discomfort sometimes, no vomiting if takes Omeprazole 40 daily. Symptomatic on 20 mg dose. well child exam Has been doing w ell. Finished 10th grade with As and Bs. Has been a difficult year with health concerns. Has been vomiting less, on Omeprazole 40 mg daily for 6 mos. Tried to decrease the dose but symptoms worsened. Moods are stable on Zoloft. Doing counseling with Magdi Sandra--clicked with him and sessions are helpful. 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 Gets plenty of physical activity. Has not needed to use her inhaler at all this year. Plans to go to [employer] for 2 week leadership program, has gotten scolarship--very excited. Going to see grandparents to [place] after. Chose not to take Drivers ed for now, feels it is difficult to get drivers license now. vomiting Onset: 1 Day ago . Has been vomiting non-stop. Unable to keep anything down. Vomited bile twice during visit. No fever. No exposure to sick persons. No diarrhea. Has abdominal pain. Started before vomiting started. Has not urinated since yesterday, not sure when last time was. LMP: 4 days ago. Follow Up of Sertaline Here for f/u anxietyMoods stable on Zoloft - having some attention issues - grades good but takes longer to finish tests - has been worse last few months - will get focused on one topic and doesn't focus on anything else - told has ADD in past but Adderall caused sleepiness - not sleeping as much - hard to get out bedStill taking omeprazoleStarted doxycycline but took on empty stomach and vomited one day so afraid to take again - acne slight worse - wondering about accutaneOcc headaches/dizzy at times - not drinking much water - drinks a lot of coffeeDiet healthy - regular mealsDances with show choirGot news internship at [facility] for 2 weeks - nervous but excited Prod cough/sinus Pt has had a pr od cough x 1 week with sinus congestion/pressure w/yellow drainage. Ears plugged. Sl sore throatStarted with URI sx - runny nose and congestion - lost voice - then developed cough Sx persistent - feels more sinus pressure and congestionNo fever/chillsNot taking meds now - tried Zyrtec D at times congestion Onset: 2 Weeks a go. Has a cough and headaches. No fever. Has had chest congestion and some shortness of breath the last week. Used inhaler but last time years ago when was sick. Follow Up of sertaline Patient h as case doing well. Depression and anxiety stable, happy with the dose and thinks getting better. Patient is thinking if should decrease the dose. No panic attacks and sleeps well. No problems at school.She has been taking Omeprazole 40 mg daily since saw Pediatric GI 10/2016. Symptoms of Upper abd pain and vomiting completely resolved. Sometimes has vomiting if forgets to take medication. possible yeast infection Patient c/o pain with urination. Uncomfortable and burning in vaginal area all the time. Noted green discharge and ?odor. No frequency urinating. Denies risk for STIs. well child exam Here for well vi sitNo significant change in vomiting - still vomits with eatingHas had recurrent vomiting on and off for several months - mom thought was stress related - was using ranitidine which used to help but not latelyIniitially thought food related - tried to decrease dairy and gluten but no difference Doesn't feel bad but vomits after eatingHad sx 3-4 years ago with stomach pains - did see GI and had EGD which was normalh/o depression for several years - was seeing psychiatrist and psychologist and taking Zoloft - feels stable on meds vomiting Has had vomiting for a month. First every other day, mostly in the evening and ate/drank normally. In the last 4 days, vomited every time ate and drank. No abdominal pain, no fever. Mother gave ranitidine 150 mg bid with no relief. She has hx: GERD but had abdominal discomfort with her usual GERD symptoms. This feels different. She has had vomiting a year ago but never lasted as long. She is on don vacation now -should be under less stress.She is taking Zoloft 100 mg daily for anxiety and depression, has been on it for 2 years. LMP: 1 mos ago, periods are regular. Functional Status Date Functional Assessmen t No Information Instructions Date Instruction Additional Infor winifred stablecontinue Adder all XR 15 mg, add Adderall 10 mg as needed in afternoon for night time classwill email in one month to f/u on how its working-has taken combination beforemay have difficulty getting Adderall during the summer while abroad-she will start planning for this ahead of time Related to Attention-deficit hyperactivity disorder, combined type stablecontinue Zolof t and Wellbutrin at current dosesf/u Aug if doing well Related to Major depressive disorder, single episode, moderate managing without medications Rel ated to Fibromyalgia started Doxycycline recentlyfollow up with dermatology, record requested Related to Other acne cystic acne with sca rringalso has probable ?hydradenitis suppurativa changes in groin arearefer to dermatology, will need to find specialist who takes her insurance, will need referral Related to Other acne symptomatic tx discu ssedcan continue Theraflu as neededrest, fluidsf/u if not better within 5 days Related to COVID-19 improved mood with W ellbutrin but still feels depressed pm hourscan try to if helps increasing Zoloft dose to 200 mgcontinue Wellbutrin XL 150 mg and monitor nightmaresf/u at [facility] in Nov, call sooner if nightmares persist Related to Major depressive disorder, single episode, moderate stablecontinue same medication/dosesf/u at [facility] in Nov Related to Attention-deficit hyperactivity disorder, combined type stablecontinue Adder all XR 15 mg daily and Adderall 10 mg as needed Related to Attention-deficit hyperactivity disorder, combined type mood improved but st ill low motivationcontinue Zoloft 150 mgagree with adding Wellbutrin, serdf/u 1 moswill do labs once here from school (TSH) will call for order Related to Major depressive disorder, single episode, moderate continue Hydroxychlo roquine, now on 200 mg dosestopped Celebrex due to weight gain (?fluid retention)pain is manageable, will monitor once off Cymbaltaf/u Dr Trivedi Related to Fibromyalgia feels Cymbalta not w orking at all and severely depressed mood, not motivatedcan switch back to Zoloft, last effective dose was 150 mg-switch directlyadvised to report any increase in suicidal thoughtsstrongly encouraged to restart counselling f/u in office during spring, can check thyroid labs then due to weight gain Related to Major depressive disorder, single episode, moderate mood improved with h igher dose of Cymbalta, tolerates it wellcontinue Cymbalta 60 mg helps with fibromyalgia painf/u 3 mos Related to Major depressive disorder, single episode, moderate stable with current dose of Adde rall Related to Attention-deficit hyperactivity disorder, combined type increase in depressi on and anxiety since school started and with recent Covid related quarantineincrease Cymbalta to 60 mgcall or email in 2 weeks to follow up-schedule virtual f/u in 1 mos Related to Major depressive disorder, single episode, moderate stablecontinue Adder all XR 15 mg daily and Adderall 10 mg as needed-due for refills Related to Attention-deficit hyperactivity disorder, combined type 11/2020 Dr Trivedi's v isit reviewedmedication list updatedcontinue Plaquenil and Celebrexpain is under good control nowcontinue Omeprazole Related to Fibromyalgia Labs from Dr Trivedi 11/04/20 reviewedHg was 8.8 and Ferritin 5--was not taking iron supplement thento continue Iron supplement--restarted in Novemberrepeat CBC Mon to make sure Hg improved Related to Anemia, unspecified generalized muscle p [facility]had labs recently with Rheumatology to r/o other conditions, KEYON was pos here-has not received lab results from 10/2020--will f/u with Dr Trivedi in 2 daysrecords and labs requested, CBC and iron was also donewill start on Cymbalta today per Dr Trivedi recommendation since ran out of Zoloft currently for 3-4 days Related to Fibromyalgia occasional symptomst reat with Claritin or Abigail as neededSudafed as needed for congestion Related to Allergic rhinitis SBE discussedDiscuss ed healthy diet and exercise-has been active in the summer, continue regular physical activity during school yearImm utd, discussed Meningitis B vaccine since lives in dorms while at school, mother will check into getting it for her Never sexually active Related to Encounter for general adult medical examination without abnormal findings continue OCPs and Sl ow Fe twice a dayhad labs with Dr Trivedi in Octoberresults requested Related to Anemia, unspecified was fairly stable on Zoloft 150 mgwould like to try Cymbalta to see if also provides myalgia reliefstart Cymbalta 30 mg daily, serdcall in 2 weeks to make sure tolerates and will deicide if need to increase the doseconsider restarting counselling at school, her previous therapist retired Related to Major depressive disorder, single episode, moderate stable continue Adde rall XR 15 mg daily and Adderall 10 mg as needed-has not used Adderall 10 mg during summer--does not need refill yet Related to Attention-deficit hyperactivity disorder, combined type less frequent vomiti ng with Omeprazole, about once a week-vomits undigested food sometimesDr Shikha suggested Hida scan--would refer to GI to evaluate at this timereferred to Dr Booth Related to Vomiting worsening of symptom s recently ?due to prednisone and Naproxen/ibuprofen useadvised to always take pain medication with food and avoid continuous useincrease Omeprazole to 40 mg again for nowsee GI for follow up, was at [facility] before--referred to Dr Booth Related to GERD w/o esophagitis no periods with OCPs advised to take continuously (skip placebo) to avoid hormonal fluctuation since also noted muscle pain flair up during that timewill call for refill Related to Dysmenorrhea likely due to yeast infection, no other urinary symptomscannot give urine sample todayadvised to f/u if pain w urination does not resolve or has more urinary complaints Related to Dysuria will treat with Fluc onazole since on her period nowcall if not better in 2-3 dayscondom use advised when sexually active Related to Candidiasis of vulva and vagina Adderall XR wears to o soon and does not last long enough to study on some daysas discussed at physical: can try short acting Adderall as needed to help with afternoon concentrationshe will e-mail with follow up-next time when due for refill Related to Attention-deficit hyperactivity disorder, combined type doing better with OC PSTolerates Junel wellrefilled until next physical Related to Dysmenorrhea seen at urgent care todaystrep neg-diagnosed with tonsillitisto start Azithromycin todaysalt water gargles, Ibuprofen as neededfollow up if not better Related to Acute tonsillitis, unspecified stable, continue Ome prazole 40 mg dailytried to wean down but could not, will try again in summer when stress level is lower Related to GERD w/o esophagitis increase Adderall XR to 15 mg, will give 5mg dose to finish current supplyf/u 3-4 weeks, before needs refill Related to Attention-deficit hyperactivity disorder, combined type stable, continue Zol oft 100 mgf/u at X if doing well Related to Major depressive disorder, single episode, moderate use Debrox to R ear for 3-4 days, wait to start until betterfollow up for irrigation if was does not come out Related to Impacted cerumen, right ear pale now and mother notedmild anemia 2.5 yr agocan check CBC but would weight until better, mother will call for order in 1 week Related to Pallor no exposure to whopp ing coughhad bronchitis last yearstart Prednisone 30 mg daily for 5 days, take with foodAzithromycin-5 day pack and use Albuterol inhaler every 4-6 hours until better then as neededfollow up if not better in 2-3 days or any worsening, will stay home for 2 more days-note for school given Related to Acute bronchitis, unspecified presents with sympto ms of moderate depression with loss of appetite and loss of motivation, not gone to school for 4 days-discussed symptoms with mother and patient, discussed medication choicesneeds to get back to counseling as soon as possible, regular counsellor returning next week -if not need to see someone elsecontinue Zoloft 100, add Wellbutrin XL 150-tolerated it in the pastfollow up 2 weeks -call sooner if any worseningmonitor for suicidal thoughtsnote for school givenconsider increasing Zoloft to 150 at f/u, consider psych referral if not better Related to Major depressive disorder, single episode, moderate Discussed diet incre ase calcium intake, try almond milk -one glass a dayDiscussed nl developmentImm reviewedDiscussed school performanceperiods regular, never sexually active Related to Encntr for routine child health exam w/o abnormal findings stable, continue Zol oft 100continue weekly counselling Related to Major depressive disorder, single episode, moderate has taken Mary Vidal RN, 30 days-better response with Ritalin and concerns about costexplained that regular Ritalin is not a good option and whymother will check if qualifies for patient assistance program with Vyvanse Related to Attention-deficit hyperactivity disorder, combined type u/s L breast ordered 09/03/18exam unchangedmother will schedule u[facility]s [facility] Related to Lump in the left breast stable with daily Om eprazole 40has vomiting if misses a dose Related to GERD w/o esophagitis Age appropriate diet discussed (15-21 years) Related to Encntr for routine child health exam w/o abnormal findings Age appropriate safe ty discussed (15-21 years) Related to Encntr for routine child health exam w/o abnormal findings Oral Health Discussed ( yea rs) Related to Encntr for routine child health exam w/o abnormal findings Age appropriate anti cipatory guidance discussed (15-21 years) Related to Encntr for routine child health exam w/o abnormal findings nebulizer today, 30% improvement noted in aerationstart Azithromycin, 5 day pack as directed start Prednisone 30 mg daily for 5 daysuse Proair inhaler every 4-6 hours as needed, may use more frequently if neededcan go to school tomorrow if feeling betterfollow up if cough/breathing is not much better in 3-4 days Related to Acute bronchitis, unspecified felt better with add ition of Wellbutrin but again feels flatdecrease Zoloft to 100 mg day (take 150 and 100 alternating every other day for a week, then go on 100 mg/day)continue Wellbutrin XL 150consider increasing to 300 mg if neededfollow up 4 weeks Related to Major depressive disorder, single episode, moderate continue Prilosec 40 mg, had break through vomiting with lower dose Related to GERD w/o esophagitis discussed symptoms, gets accommodations at school will try Wellbutrin XL to augment depression tx and to help attentionfollow up 4 weeks Related to Attention and concentration deficit did not tolerate hig her dose of Zoloft--flat affect, sleeping more and more problems concentrating. Anxiety improvedAdd Wellbutrin 150 XL one a day, discussed how to take and possible side effectscontinue Zoloft 150 for 3-4 weeks to see effect of Wellbutrin, plan on cutting down Zoloft to 100 mg when better and monitor closelycontinue regular counsellingfollow up 4 weeks--call or e-mail with any questions/concerns Related to Major depressive disorder, single episode, moderate Dec-27-2018 continue Omeprazole 40 mg, symptomatic on lower dosereduce caffeine, drink only of full stomach Related to GERD w/o esophagitis treat anxiety and de pression to see if helps inattentionconsider neuropsychological testing to see if can benefit from stimulants --if not better Related to Attention and concentration deficit Worsening depression with one severe panic attackincrease Zoloft to 150 mg, take 1 1/2 tabcontinue weekly f/u with therapistf/u 4-6 weeks, call sooner if any concerns Related to Panic attack Discussed diet Discu ssed nl developmentImm reviewed, HPV #2 today, does not need another dose since started due for Meningitis vaccine 01/23Discussed school performance, doing well at schoolform for [facility] filled out, going for 2 week leadership program this summer Related to Encntr for routine child health exam w/o abnormal findings stable, continue wit h Zoloft 100 continue counseling, seeing Te Maciel in [place] Related to Major depressive disorder, single episode, unspecified continue Omeprzole 4 0 mg daily, needs full dose at this timeno vomiting last 3 weeks and has been better since on Omeprazole Related to GERD w/o esophagitis mild non-iflammatory acne, face and upper backtrial benzoyl peroxide lower dose, use twice a day on clean skin(may use OTC formulation)clean face daily follow up if not improved in 2-3 mos Related to Acne Age appropriate anti cipatory guidance discussed (15-21 years) Related to Encntr for routine child health exam w/o abnormal findings Age appropriate diet discussed (-21 years) Related to Encntr for routine child health exam w/o abnormal findings Age appropriate safe ty discussed (-21 years) Related to Encntr for routine child health exam w/o abnormal findings Oral Health Discussed ( yea rs) Related to Encntr for routine child health exam w/o abnormal findings referred to ER for e valuation and may need fluids Related to Vomiting referred to ER for e valuationneeds imaging to r/o appendicitisgrandmother will take to Darci report called in Related to Right lower quadrant pain asymptomatic with Om eprazole 40try to decrease dose to 20 mg daily, call if having break through symptoms Related to GERD w/o esophagitis stablecontinue with Zoloft 100 mg dailycountinue counseling Related to Depression nebulized albuterol now, some improvementuse Proair RespiClick inhaler as directed every 4-6 hours for 3-4 days then as neededstart Azithromycin 250 --2 pills today then one pill once a day for 4 more dayscall Saturday if not better, come in if worsening Related to Acute bronchitis, unspecified urinalysis negative for bladder infection Related to Dysuria start Fluconazole 15 0 mg tab today (with food), repeat after done with antibiotic in 5 days Related to Candidal vulvovaginitis Oral Health Discussed (- yea rs) Related to Encntr for routine child health exam w/o abnormal findings Age appropriate safe ty discussed (15-21 years) Related to Encntr for routine child health exam w/o abnormal findings Age appropriate diet discussed (15-21 years) Related to Encntr for routine child health exam w/o abnormal findings Age appropriate anti cipatory guidance discussed (15-21 years) Related to Encntr for routine child health exam w/o abnormal findings pain on exam only: c onsider further testing as guided by lab [facility]ulintegr[facility] [place] up appointent tomorrow Related to Upper abdominal pain Zofran 4 mg ODT, brenden ry 6 hours as needed for vomitingPedialyte sips, may help vomiting by replenishing electrolytesLabs: CBC, CMP and lipase Related to Vomiting Assessments Type Assessment Date No Information Patient Care Teams Name Effective Dates (start - stop) Status Members No Information
--- OUTSIDE RECORDS SUMMARY | 2023-01-06 02:33 | XMS_ITS | Continuity of Care Document ---
Author Name Unknown Organization [facility] epartment/[facility] Address [address] [place] [phone] Phone Care Team Providers Care Outdoor Education Teacher Name Role Phone Eva ROGEScarlet Unavailable Unavailable [...] Diagnoses Date Provider Providers Copied on Encounter [facility], [address] [place] [address], [id number], [place] tel:[phone] P [facility] Dental Dental Visit (chief complaint) Chronic gingivitis, plaque inducedOther dental procedure status Eva Novak. [address] [facility], [place], [place], [id number], [place]. tel:[phone] [facility], [address] [place] [address], [id number], [place] tel:[phone] [facility] No Information [facility] Nurse. [address] [place] [address], [id number], [place]. tel:[phone] [facility], [address] [place] [address], [id number], [place] tel:[phone] Rodolfo [place] [facility] No Information [facility] Nurse. [address] [place] [address], [id number], [place]. tel:[phone] [facility], [address] [place] [address], [id number], [place] tel:[phone] [facility] No Information [facility] Nurse. [address] [place] [address], [id number], [place]. tel:[phone] [facility], [address] [place] [address], [id number], [place] tel:[phone] [facility] CONV No Information [facility]V [facility]. [address] [place] [address], [id number], [place]. Family History Family Member Type Diagnosis Age At Onset No Information Immunizations Vaccine Date Status Comments Flu (split) (3 yrs or older) administered Source: New Immunization Record Influenza (H1N1) virus vaccine, pandemic formulation administered Source: Ne w Immunization Record Flu (split) (3 yrs or older) administered Source: New Immunization Record Hep A (ped/adol, 2 dose) administered Ehlena rce: New Immunization Record HEP A VAC PED/ADOL administered Note: LA ; Source: New Immunization Record VARICELLA, PED/ADOLESCENT administered No te: RA ; Source: New Immunization Record VARICELLA, PED/ADOLESCENT administered No te: RA ; Source: New Immunization Record INFLUENZA .50 DOSE administered Note: LA ; Source: New Immunization Record DTAP administered Note: RA ; Sour ce: New Immunization Record [id number], PED/ADL administer ed Note: LA ; Source: [...] te: [place] ; Source: New Immunization Record [id number], PED/ADL administer ed Note: LA ; Source: [...] Immunization Record HEP B VACCINE PED/ADOL administered [facility] e: New Immunization Record Payers Payer name Insurance type Covered alliance party ID Zara cameron(s) [facility] CI [id number] Social History Type Description Quantity Date Captured [...]
--- OUTSIDE RECORDS SUMMARY | 2023-01-06 02:33 | XMS_ITS | Patient Health Record ---
Author Name Unknown Organization [facility] Address [address] [place], [place] [id number] Care Team Providers Care Web Worker Name Role Phone Amita Dyer Primary Care Provider Irais Brooks Unavailable [phone] ALLERGIES No Known Allergies REASON FOR REFERRAL No Information MEDICATIONS Medication SIG (Take, Route, Frequency, Duration) Notes Start Date End Date Status Iron Complex - as directed Orally Active Adderall XR 15 MG 1 capsule in the morning Orally Once a day Active Celecoxib 200 MG 1 capsule with food Orally Once a day for 30 days 11/26/2020 Active Hydroxychloroquine Sulfate 200 MG 1.5 a day Orally daily for 90 days 12/09/2020 Active Adderall 10 MG 1 tablet Orally Twice a day only takes prn Active Biotin 1000 MCG 1 tablet Orally Once a day for 30 day(s) Active Microgestin FE 1/20 1-20 MG-MCG 1 tablet Orally Once a day for 28 day(s) Active Omeprazole 20 MG 2 capsule 30 minutes before morning meal Orally Once a day Active Multivitamin Adult - 1 tablet Orally Once a day for 30 day(s) Active Cymbalta 30 MG 1 capsule Orally Once a day for 30 day(s) Active SOCIAL HISTORY Sex Assigned At : Social History Observation Description Sex Assigned At Unknown PROBLEMS Problem Type ICD Code Onset Dates Problem Status W/U Status Risk SNOMED Code Notes Problem Anemia (D64.9) Active confirmed Anemia (460026914) Problem Fibromyalgia affecting multiple sites (M79.7) Active confirmed Fibromyalgia (007038925) Problem Abnormal antibody titer (R76.8) Active confirmed Antibody studie s abnormal (805878333) Problem Moderate major depression (F32.1) Active confirmed Moderate major depression (786581) PLAN OF TREATMENT No Information MEDICAL (GENERAL) HISTORY Medical History History ICD Code Moderate major depression F32.1 ADHD-combined type
--- OUTSIDE RECORDS SUMMARY | 2023-01-06 02:33 | XMS_ITS | Continuity of Care Document ---
Author Name Unknown Organization [facility] Address [address] [facility] [address] [place] [address] Phone Care Team Providers Care Client Services Account Manager Name Role Phone Amita Dyer MD [...] Diagnoses Date Provider Providers Copied on Encounter [facility], [address] [place] [address], [id number], [place] tel:[phone] Amita Dyer M.D. No Information 3 Manisha Levi. [address] [place] [address], [address], [id number] , [place]. tel:[phone] Office/outpa tient visit,est, mod [facility], [address] [place] [address], [id number], tel:[phone] Telehealth Virtual Visit (chief complaint) Attention-defi cit hyperactivity disorder, combined type 3 Manisha Levi. [address] [place] [address], Suite [facility], [place], [place], [id number] , [place]. tel: [phone] Referring Provider: Amita Reynolds, [address] [place] [address] Suite [facility], [place], [address] . tel:[phone] [facility], [address] [place] [address], [id number], tel:[phone] Amita Dyer M.D. No Information 3 Manisha Levi. [address] [place] [address], [id number] , . tel: [phone] [facility], [address] [place] [address], [id number], tel:[phone] Amita Dyer M.D. No Information 3 Manisha Levi. [address] [place] [address], [id number] , [place]. tel: [phone] Office/outpa tient visit,est, [facility], [address] [place] [address], [id number], [place] tel:[phone] Telehealth Virtual Visit (chief complaint) Major depressive disorder, single episode, moderateAttent ion-deficit hyperactivity disorder, combined typeFibromyalg iaOther acne 3 Manisha Levi. [address] [place] [address], [id number] , [place]. tel: [phone] Referring Provider: Amita Reynolds, [address] [place] [address] [place] [address], [address] . tel:[phone] Office/outpa tient visit,[facility], [address] [place] [address], [id number], tel:[phone] Telehealth Virtual visit (chief complaint) COVID-19Other acne 2 Manisha Levi. [address] [place] [address], [place], [id number] , [place]. tel:[phone] Referring Provider: Amita Reynolds, [address] [place] [address] Suite [facility], [place], [address] . tel:[phone] Office/outpa tient visit,[facility], [address] [place] [address], [id number], tel:[phone] Telehealth Virtual Visit (chief complaint) Major depressive disorder, single episode, moderateAttent ion-deficit hyperactivity disorder, combined typeSystemic lupus erythematosus, unspecified 2 Manisha Levi. [address] [place] [address], [address] [place] [address], [id number] , [place]. tel:[phone] Referring Provider: Amita Reynolds, [address] [place] [address] Suite [facility], [place], [address] . tel:[phone] Preventive checkup, [facility],18-39 yrs [facility], [address] [place] [address], [id number], tel:[phone] Amita Dyer M.D. preventive exam - physical (chief complaint) Encounter for general adult medical examination without abnormal findingsMajor depressive disorder, single episode, moderateAttent ion-deficit hyperactivity disorder, combined typeSystemic lupus erythematosus, unspecifiedFib romyalgiaEncnt r screen for infections w sexl mode of transmissAller gic rhinitis 2 Manisha Levi. [address] [place] [address], [address], [id number] , . tel:[phone] Referring Provider: Amita Reynolds, [address] [facility] [address], [place], [address] . tel:[phone] Office/outpa tient visit,[facility], [address] [place] [address], [id number], tel:[phone] Telehealth Virtual Visit (chief complaint) Major depressive disorder, single episode, moderateAttent ion-deficit hyperactivity disorder, combined type 2 Manisha Levi. [address] [place] [address], [address], [place], [place], [id number] , [place]. tel:[phone] Referring Provider: Amita Reynolds, [address] [facility] Suite [facility], [place], [address] . tel:[phone] [facility], [address] [place] [address], [id number], [place] tel:[phone] Amita Dyer M.D. No Information 2 Manisha Levi. [address] [place] [address], [address], [id number] , [place]. tel:[phone] Office/outpa tient visit,[facility], [address] [place] [address], [id number], tel:[phone] Telehealth virtual visit (chief complaint) Major depressive disorder, single episode, moderateAttent ion-deficit hyperactivity disorder, combined type 2 Manisha Levi. [address] [place] [address], [address], [id number] , [place]. [phone] Referring Provider: Amita Reynolds, [address] [facility] [address], [place], [address] . tel:[phone] Office/outpa tient visit,[facility], [address] [place] [address], [id number], [place] tel:[phone] Telehealth Virtual Visit (chief complaint) Major depressive disorder, single episode, moderateSystem ic lupus erythematosus, unspecifiedFib romyalgia 2 Manisha Levi. [address] [facility], [address], [place], [place], [id number] , [place]. tel:[phone] Referring Provider: Amita Reynolds, [address] [place] [address] Suite [facility], [place], [address] . tel:[phone] Office/outpa tient visit,[facility], [address] [place] [address], [id number], [place] tel:[phone] Telehealth Virtual visit (chief complaint) Major depressive disorder, single episode, moderateAttent ion-deficit hyperactivity disorder, combined typeSystemic lupus erythematosus, unspecifiedFib romyalgia 2 Manisha Levi. [address] [place] [address], [address], [place], [place], [id number] , [place]. tel:[phone] Referring Provider: Amita Reynolds, [address] [place] [address] Suite [facility], [place], [address] . tel:[phone] Office/outpa tient visit,[facility], [address] [place] [address], [id number], tel:[phone] Telehealth Virtual visit (chief complaint) Major depressive disorder, single episode, moderateAttent ion-deficit hyperactivity disorder, combined type 1 Manisha Levi. [address] [facility], [address], [place], [place], [id number] , [place]. [phone] Referring Provider: Amita Reynolds, [address] [facility] [address], [place], [address] . tel:[phone] Office/outpa tient visit,[facility], [address] [place] [address], [id number], tel:[phone] Telehealth Virtual Visit (chief complaint) Major depressive disorder, single episode, moderateAttent ion-deficit hyperactivity disorder, combined typeFibromyalg iaAnemia, unspecified 1 Manisha Levi. [address] [facility], [address], [place], [place], [id number] , . tel:[phone] Referring Provider: Amita Reynolds, [address] [place] [address] [address], [place], [address] . tel:[phone] Preventive checkup, est,18-40 yrs [facility], [address] [place] [address], [id number], tel:[phone] Amita Dyer M.D. preventive exam - physical (chief complaint) Encounter for general adult medical examination without abnormal findingsMajor depressive disorder, single episode, moderateAttent ion-deficit hyperactivity disorder, combined typeDysmenorrh eaGERD w/o esophagitisVom itingAnemia, unspecifiedAll ergic rhinitisFibrom yalgia 1 Manisha Levi. [address] [place] [address], [address], [id number] , . tel:[phone] Referring Provider: Amita Reynolds, [address] [place] [address] [place] [address], [address] . [phone] [facility], [address] [place] [address], [id number], tel:[phone] Amita Dyer M.D. No Information 1 Manisha Levi. [address] [place] [address], [id number] , . tel:[phone] Referring Provider: Amita Reynolds, [address] [place] [address], [address] . tel:[phone] Office/outpa tient visit,[facility], [address] [place] [address], [id number], [place] tel:[phone] Amita Dyer M.D. Leg Pain (chief complaint) MyalgiaParesth esia of skinLow back pain Ignacio-2 1 Manisha Levi. [address] [place] [address], [place], [id number] , [place]. tel:[phone] Referring Provider: Amita Reynolds, [address] [place] [address], [place], [address] . tel:[phone] Office/outpa tient visit,[facility], [address] [place] [address], [id number], [place] tel:[phone] Telehealth depression (chief complaint) Major depressive disorder, single episode, moderateAttent ion-deficit hyperactivity disorder, combined type Fe-0 1 Manisha Levi. [address] [place] [address], [id number] , [place]. tel:[phone] Referring Provider: Amita Reynolds, [address] [place] [address] Suite [facility], [place], [address] . tel:[phone] Office/outpa tient visit,[facility], [address] [place] [address], [id number], tel:[phone] Amita Dyer M.D. vaginal sores (chief complaint) DysuriaCandidi asis of vulva and vagina 0 Manisha Levi. [address] [place] [address], [id number] , [place]. tel:[phone] Referring Provider: Amita Reynolds, [address] [place] [address], [place], [address] . tel:[phone] Office/outpa tient visit,[facility], [address] [place] [address], [id number], [place] tel:[phone] Telehealth Virtual visit (chief complaint) Acute tonsillitis, unspecified 0 Manisha Levi. [address] [facility], [address], [place], [place], [id number] , [place]. tel:[phone] Referring Provider: Amita Reynolds, [address] [place] [address] [address], [place], [address] . tel:[phone] Office/outpa tient visit,[facility], [address] [place] [address], [id number], [place] tel:[phone] Telehealth Virtual Visit (chief complaint) Attention-defi cit hyperactivity disorder, combined typeDysmenorrh eaAcute tonsillitis, unspecified 0 Manisha Levi. [address] [place] [address], [address], [place], [place], [id number] , [place]. [phone] Referring Provider: Amita Reynolds, [address] [place] [address] Suite [facility], [place], [address] . tel:[phone] Preventive checkup, [facility],18-39 yrs [facility], [address] [place] [address], [id number], [place] tel:[phone] Amita Dyer M.D. preventive exam - physical (chief complaint) Encntr for general adult medical exam w/o abnormal findingsMajor depressive disorder, single episode, moderateAttent ion-deficit hyperactivity disorder, combined typeAcneDysmen orrheaImpacted cerumen, right earBody mass index (BMI) 21.0-21.9, adult Aug- 0 Manisha Levi. [address] [place] [address], [address], [id number] , . tel:[phone] Referring Provider: Amita Reynolds, [address] [place] [address], [place], [address] . tel:[phone] Office/outpa tient visit,[facility], [address] [place] [address], [id number], tel:[phone] Amita Dyer M.D. Follow Up of meds (chief complaint) Major depressive disorder, single episode, moderateAttent ion-deficit hyperactivity disorder, combined typeGERD w/o esophagitis 0 Manisha Levi. [address] [place] [address], [id number] , [place]. tel:[phone] Referring Provider: Amita Reynolds, [address] [place] [address], [place], [address] . tel:[phone] Office/outpa tient visit,[facility], [address] [place] [address], [id number], tel:[phone] Amita Dyer M.D. cough (chief complaint) Acute bronchitis, unspecifiedImp acted cerumen, right earPallor 0 Manisha Levi. [address] [place] [address], [place], [place], [id number] , [place]. [phone] Referring Provider: Amita Reynolds, [address] [place] [address], [place], [address] . tel:[phone] Office/outpa tient visit,[facility], [address] [place] [address], [id number], [place] tel:[phone] Amita Dyer M.D. Follow Up of anxiety/dep ression (chief complaint)s inus infection (chief complaint) Major depressive disorder, single episode, moderateAttent ion-deficit hyperactivity disorder, combined typeAcute sinusitis, unspecified 9 Manisha Levi. [address] [place] [address], Suite [facility], [place], [id number] , . [phone] Referring Provider: Amita Reynolds, [address] [place] [address], [place], [address] . tel:[phone] Office/outpa tient visit,[facility], [address] [place] [address], [id number], [phone] Amita Dyer M.D. depressed (chief complaint) Major depressive disorder, single episode, moderate 9 Manisha Levi. [address] [place] [address], [id number] , [place]. tel:[phone] Referring Provider: Amita Reynolds, [address] [place] [address], [place], [address] . tel:[phone] Preventive checkup, [facility],12-17 yrs [facility], [address] [place] [address], [id number], tel:[phone] Amita Dyer M.D. Well child (chief complaint) Encntr for routine child health exam w/o abnormal findingsMajor depressive disorder, single episode, moderateAttent ion-deficit hyperactivity disorder, combined typeGERD w/o esophagitisLum p in the left breast 9 Manisha Levi. [address] [place] [address], [id number] , [place]. tel:[phone] Referring Provider: Amita Reynolds, [address] [place] [address], [place], [address] . tel:[phone] Office/outpa tient visit,[facility], [address] [place] [address], [id number], tel:[phone] Amita Dyer M.D. Follow Up of depression (chief complaint) Major depressive disorder, single episode, moderateAttent ion-deficit hyperactivity disorder, combined typeLump in the left breast 9 Manisha Levi. [address] [place] [address], [id number] , . tel:[phone] Referring Provider: Amita Reynolds, [address] [place] [address], [address] . tel:[phone] Office/outpa tient visit,[facility], [address] [place] [address], [id number], [place] tel:[phone] Amita Dyer M.D. Cough (chief complaint) Acute bronchitis, unspecifiedMaj or depressive disorder, single episode, moderatePneumo darci 9 Manisha Levi. [address] [place] [address], [id number] , [place]. [phone] Referring Provider: Amita Reynolds, [address] [place] [address], [address] . tel:[phone] Office/outpa tient visit,[facility], [address] [place] [address], [id number], [place] tel:[phone] Amita Dyer M.D. Follow Up of Anxiety (chief complaint) Major depressive disorder, single episode, moderateAttent ion and concentration deficitGERD w/o esophagitis 9 Manisha Levi. [address] [place] [address], [id number] , [place]. tel:[phone] Referring Provider: Amita Reynolds, [address] [place] [address], [address] . tel:[phone] Office/outpa tient visit,[facility], [address] [place] [address], [id number], tel:[phone] Amita Dyer M.D. Meds Check (chief complaint) Panic attackAttentio n and concentration deficitGERD w/o esophagitisEnc ounter for immunizationMa chuy depressive disorder, single episode, moderate 8 Manisha Levi. [address] [place] [address], [id number] , [place]. tel:[phone] Referring Provider: Amita Reynolds, [address] [place] [address], [place], [address] . tel:[phone] Office/outpa tient visit,[facility], [address] [place] [address], [id number], tel:[phone] Amita Dyer M.D. well child exam (chief complaint) Encntr for routine child health exam w/o abnormal findingsMajor depressive disorder, single episode, unspecifiedGER D w/o esophagitisAcn e 8 Manisha Levi. [address] [place] [address], [id number] , [place]. tel:[phone] Referring Provider: Amita Reynolds, [address] [place] [address], [address] . tel:[phone] Office/outpa tient visit,[facility], [address] [place] [address], [id number], [place] tel:[phone] Amita Dyer M.D. vomiting (chief complaint) Right lower quadrant painVomiting 8 Manisha Levi. [address] [place] [address], [id number] , [place]. tel:[phone] Referring Provider: Amita Reynolds, [address] [place] [address], [address] . tel:[phone] Office/outpa tient visit,[facility], [address] [place] [address], [id number], tel:[phone] Amita Dyer M.D. Follow Up of Sertaline (chief complaint) Major depressive disorder, single episode, unspecifiedGER D w/o esophagitisAcn e 8 Manisha Levi. [address] [place] [address], [id number] , . tel:[phone] Referring Provider: Amita Reynolds, [address] [place] [address], [address] . tel:[phone] Office/outpa tient visit,[facility], [address] [place] [address], [id number], tel:[phone] Amita Dyer M.D. Prod cough/sinus (chief complaint) Acute sinusitis, unspecifiedAcn e 8 Manisha Levi. [address] [place] [address], [id number] , . tel:[phone] Referring Provider: Amita Reynolds, [address] [place] [address], [address] . tel:[phone] Office/outpa tient visit,[facility], [address] [place] [address], [id number], tel:[phone] Amita Dyer M.D. Follow Up of sertaline (chief complaint)c ongestion (chief complaint)p ossible yeast infection (chief complaint) DepressionAcut e bronchitis, unspecifiedGER D w/o esophagitisDys uriaCandidal vulvovaginitis 7 Manisha Levi. [address] [place] [address], [id number] , . [phone] Referring Provider: Amita Reynolds, [address] [place] [address] [address] [facility], [place], [address] . tel:[phone] Preventive checkup, est,12-18 yrs [facility], [address] [place] [address], [id number], tel:[phone] Amita Dyer M.D. well child exam (chief complaint) Encntr for routine child health exam w/o abnormal findingsVomiti ngDepression Manisha Levi. [address] [place] [address], [id number] , . [phone] Referring Provider: Amita Reynolds, [address] [place] [address], [place], [address] . tel:[phone] Office/outpa tient visit,[facility], [address] [place] [address], [id number], tel:[phone] Amita Dyer M.D. vomiting (chief complaint) Urinary tract infection, site not specifiedVomit ingUpper abdominal pain Manisha Levi. [address] [place] [address], [id number] , . tel:[phone] Referring Provider: Amita Reynolds, [address] [place] [address] [address] [facility], [place], [address] . tel:[phone] Family History Family Member Type Diagnosis Age [...] protein, LNP, preservative free, 30 mcg/0.3mL dose ([employer]) administered Source: Other Provid er SARS-COV-2 (COVID-19) vaccin e, mRNA, spike protein, LNP, preservative free, 30 mcg/0.3mL dose (Pf[employer]) administered Source: Other Provid er SARS-COV-2 (COVID-19) vaccin e, mRNA, spike protein, LNP, preservative free, 30 mcg/0.3mL dose ([employer]) administered Source: Other Provid er Fluzone preservative [...] Provider Payers Payer name Insurance type Covered libertarian ID Authoriza tion(s) [employer] [id number] [facility] [id number] [id number] [id number] [id number] Social History Type Description Quantity Date Captured Comments Alcohol Use Details Caffeine Use Details coffee and green tea 2 cups per day A Tobacco Use Status Current non-smoker Smoking Status never smoker Sex Female Chief Complaint And Reason For Visit No Information Reason For Referral Reason For Referral No Information Plan Of Treatment Date Type Action Status Goal Depression scree john. Due on due Goal HPV (1st) due Goal Hepatitis C scre ening. Due on due Goal H&P. Due on due Goal Tdap due Goal HPV (2nd) due Goal Influenza vaccin e. Due on due Goal GUEST RELATIONS MANAGER exam. Due on due Goal PAP. Due [...] on due Goal HPV (1st) due Goal GUEST RELATIONS MANAGER exam. Due on due Goal PAP. Due on due Goal Unhealthy drug u se screening. Due on due Goal Tdap due Goal HPV (1st) due Goal Influenza vaccin e. Due on due Goal Depression scree john. Due on due Goal Hepatitis C scre ening. Due on due Goal PAP. Due on due Goal HPV (2nd) due Goal H&P. Due on due Goal GUEST RELATIONS MANAGER exam. Due on due Goal Depression scree john. Due on due Goal GUEST RELATIONS MANAGER exam. Due on due Goal PAP. Due on due Goal HPV (1st) due Goal HPV (2nd) due Goal Unhealthy drug u se screening. Due on due Goal Hepatitis C scre ening. Due on due Goal Influenza vaccin e. Due on due Goal Tdap due Goal H&P. Due on due Goal HPV (2nd) due Goal GUEST RELATIONS MANAGER exam. Due on due Goal Tdap due Goal Unhealthy drug u se screening. Due on due Goal PAP. Due on due Goal H&P. Due on due Goal Depression scree john. Due on due Goal HPV (1st) due Goal Influenza vaccin e. Due on due Goal Hepatitis C scre ening. Due on due Goal Depression scree john. Due on due Goal HPV (2nd) due Goal Unhealthy drug u se screening. Due on due Goal GUEST RELATIONS MANAGER exam. Due on due Goal HPV (1st) [...] u se screening. Due on due Goal GUEST RELATIONS MANAGER exam. Due on due Goal Fluoride varnish application. Due on due Goal Influenza vaccin e. Due on due Goal Depression scree john. Due on due Goal HPV (1st) due Goal Tdap due Goal Influenza vaccin e. Due on due Goal HPV (2nd) due Goal GUEST RELATIONS MANAGER exam. Due on due Goal Depression scree john. Due on due Goal HPV (1st) due Goal Unhealthy drug u se screening. Due on due Goal H&P. Due on due Goal Hepatitis C scre ening. Due on due Goal Fluoride varnish application. Due on due Goal Depression scree john. Due on due Goal Influenza vaccin e. Due on due Goal GUEST RELATIONS MANAGER exam. Due on due Goal Fluoride varnish application. Due on due Goal Hepatitis C scre ening. Due on due Goal H&P. Due on due Goal HPV (1st) due Goal Tdap due Goal HPV (2nd) due Goal Unhealthy drug u se screening. Due on due Goal Pneumococcal vaccine due Goal H&P. Due on due Goal GUEST RELATIONS MANAGER exam. Due on due Goal HPV (2nd) due Goal HPV (1st) due Goal Influenza vaccin e. Due on due Goal Depression scree john. Due on due Goal Fluoride varnish application. Due on due Goal Tdap due Goal HPV (2nd) due Goal Influenza vaccin e. Due on due Goal Pneumococcal vaccine due Goal GUEST RELATIONS MANAGER exam. Due on due Goal Fluoride varnish application. Due on due Goal HPV (1st) due Goal H&P. Due on due Goal Tdap due Goal Depression scree john. Due on due Goal Depression scree john. Due on due Goal GUEST RELATIONS MANAGER exam. Due on due Goal HPV (1st) [...] HPV (1st) due Goal Tdap due Goal GUEST RELATIONS MANAGER exam. Due on due Goal Influenza vaccin e. Due on due Goal HPV (2nd) due Goal H&P. Due on due Goal Influenza vaccin e. Due on due Goal Pneumococcal vaccine due Goal Tdap due Goal Depression scree john. Due on due Goal HPV (2nd) due Goal H&P. Due on due Goal Fluoride varnish application. Due on due Goal HPV (1st) due Goal GUEST RELATIONS MANAGER exam. Due on due Goal H&P. Due on due Goal Influenza vaccin e. Due on due Goal Tdap due Goal Fluoride varnish application. Due on due Goal HPV (2nd) due Goal GUEST RELATIONS MANAGER exam. Due on due Goal Depression scree john. Due on due Goal Pneumococcal vaccine due Goal HPV (1st) due Goal Pneumococcal vaccine due Goal Tdap due Goal HPV (2nd) due Goal HPV (1st) due Goal Influenza vaccin e. Due on due Goal Fluoride varnish application. Due on due Goal Depression scree john. Due on due Goal GUEST RELATIONS MANAGER exam. Due on due Goal H&P. Due on due Goal H&P. Due on due Goal GUEST RELATIONS MANAGER exam. Due on due Goal Pneumococcal vaccine [...] HPV (2nd) due Goal Tdap due Goal GUEST RELATIONS MANAGER exam. Due on due Goal H&P. Due on due Goal Fluoride varnish application. Due on due Goal HPV (1st) due Goal HPV (1st) due Goal Influenza vaccin e. Due on due Goal Depression scree john. Due on due Goal Fluoride varnish application. Due on due Goal Pneumococcal vaccine due Goal GUEST RELATIONS MANAGER exam. Due on due Goal H&P. Due on due Goal HPV (2nd) due Goal Tdap due Goal Influenza vaccin e. Due on due Goal HPV (2nd) due Goal Fluoride varnish application. Due on due Goal Pneumococcal vaccine due Goal Depression scree john. Due on due Goal HPV (1st) due Goal GUEST RELATIONS MANAGER exam. Due on due Goal Tdap due Goal H&P. Due on due Goal Depression scree john. Due on due Goal Influenza vaccin e. Due on due Goal Fluoride varnish application. Due on due Goal H&P. Due on due Goal HPV (2nd) due Goal Pneumococcal vaccine due Goal Tdap due Goal GUEST RELATIONS MANAGER exam. Due on due Goal HPV (1st) due Goal HPV (2nd) due Goal Influenza vaccin e. Due on due Goal Fluoride varnish application. Due on due Goal Pneumococcal vaccine due Goal H&P. Due on due Goal Tdap due Goal GUEST RELATIONS MANAGER exam. Due on due Goal Depression scree [...] (1st) due Goal HPV (2nd) due Goal Tdap due Goal Depression scree john. Due on due Goal Pneumococcal vaccine due Goal Depression scree john. Due on due Goal Influenza vaccin e. Due on due Goal Fluoride varnish application. Due on due Goal Tdap due Goal HPV (2nd) due Goal Pneumococcal vaccine due Goal HPV (1st) due Goal HPV (1st) due Goal Tdap [...] Tdap due Goal HPV (2nd) due Goal Pneumococcal vaccine due Goal HPV (2nd) due Goal Influenza vaccin e. Due on due Goal HPV (1st) due Goal Fluoride varnish application. Due on due Goal Depression scree john. Due on due Goal Tdap due Goal HPV (1st) due Goal Depression scree john. Due on due Goal Influenza vaccin e. Due on due Goal Fluoride varnish application. Due on due Goal Pneumococcal vaccine due Goal HPV (2nd) due Goal Tdap due Referral Ordered: Mariposa Simons (related to Depression) ordered Referral Ordered: PABLITO KNUTSON -Gastroenterology - Pediatric (related to Vomiting) ordered Referral Referred To: Mariposa Simons Ordered: Referrals: Mariposa Simons. Consult ordered Referral Referred To: PABLITO KNUTSON [address] [place] [address], [phone] Ordered: Referrals: Gastroenterology - Pediatric. PABLITO KNUTSON. Consult ordered Future Order: Radiology Order [facility] Ultrasound (unilateral or bilateral) ([id number]), Ordered on: Ordered History Of Present Illness Encounter Date Complaint History Of Prese nt Illness Virtual Visit Patient is here for follow up meds . Virtual Visit done using HIPPAA compliant software. Patient gives verbal consent for visit.Doing great - starting finals this week[place] for sports marketing internship for 8 weeksUsing addl Adderall when [...] spent summer in [place], got excepted for sports marketing internship in [place].-Saw gas fitter and started Doxycycline 4 days ago for [...] at day camp during summer. Worked the [employer]--did a lot of jumping and had fun. She is leaving for college ([place], [place]) next week. Last year went well. [...] Has had EGD a while ago at [facility]. -Depression under fairly good control with Zoloft [...] verbal consent for visit.[facility] [place]. Sick with sore throat --went to urgent [...] exam - physical Here for physicalGoing to [facility] in [place] - political science/economics Feels moods stable with ZoloftAttention good with Adderall - scheduled morning/early afternoon classes for collegeStbeaumont hospitalh issues better but needing Prilosec 40mg daily Having severe menstrual cramps with periods last 3 monthsMore acne on back and legs - topical treatments not workingDiet fairly - appetite Common Interest Communitieshow choir at school Follow Up of meds Patient is [employer]. Anxiety and depression under good control with Zoloft. Not doing well academically. Initially felt Adderall XR 10 mg works well, now gets distracted easily when does homework. Feels wears off by early evening. Failing math. Really worried about her grades. In process of applying for colleges. Was accepted at [employer] but would like to go to college on [facility]. cough Onset: 2 weeks a go. Associated symptoms include chills, fatigue and night sweats. Additional information: bilateral ear pain.Sinus infection in March ?did not clear up completely, did not take Augmentin as prescribed-skipped doses. Not sure which symptoms still had then. Howells chills, muscle aches and vomited New Year's [...] school - going to visit schools in [place] and [place] this summerGoing on Coupanguise - excitedNoticed lump in L breast for [...] and her mother had to stay in [place] for a month to help grandmother. Carmela [...] all this year. Plans to go to [employer] for 2 week leadership program, has gotten scolarship--very excited. Going to see grandparents to [place] after. Chose not to take Drivers ed [...] healthy - regular mealsDances with show choirGot advisory internship at [facility] for [facility] weeks - nervous but excited [...] unspecified generalized muscle p ain for [facility] fibromyalgiahad labs recently with Rheumatology to [...] nowsee GI for follow up, was at [facility] before--referred to Dr Booth Related to [...] ordered 09/03/18exam unchangedmother will schedule u/s at [facility] Related to Lump in the left [...] to Major depressive disorder, single episode, moderate discussed symptoms, gets accommodations at school will try Wellbutrin XL to augment depression tx and to help attentionfollow up 4 weeks Related to Attention and concentration deficit continue Prilosec 40 mg, had break through vomiting with lower dose Related to GERD w/o esophagitis did not tolerate hig her dose of [...] Major depressive disorder, single episode, moderate continue Omeprazole 40 mg, symptomatic on lower [...] school performance, doing well at schoolform for [facility] [employer] filled out, going for 2 week leadership program this summer Related to Encntr for routine child health exam w/o abnormal findings stable, continue wit h Zoloft 100 continue counseling, seeing Te Maciel in [place] Related to Major depressive disorder, single episode, [...] abnormal findings referred to ER for e valuationneeds imaging to r/o appendicitisgrandmother will take to [place] Related to Right lower quadrant pain referred to ER for e valuation and may need fluids Related to Vomiting asymptomatic with Om eprazole 40try to decrease [...] if worsening Related to Acute bronchitis, unspecified start Fluconazole 15 0 mg tab today (with food), repeat after done with antibiotic in 5 days Related to Candidal vulvovaginitis urinalysis negative for bladder infection Related to Dysuria Age appropriate anti cipatory guidance discussed (15-21 years) Related to Encntr for routine child health exam w/o abnormal findings Age appropriate diet discussed (- years) Related to Encntr for routine child health exam w/o abnormal findings Age appropriate safe ty discussed (- years) Related to Encntr for routine child health exam w/o abnormal findings Oral Health Discussed ( yea rs) Related to Encntr for routine child health exam w/o abnormal findings pain on exam only: c onsider further testing as guided by lab resulskee follow up appointent tomorrow Related to Upper abdominal pain Zofran 4 mg ODT, brenden ry 6 hours as needed for vomitingPedialyte sips, may help vomiting by replenishing electrolytesLabs: CBC, CMP and lipase Related to Vomiting Assessments Type Assessment Date No Information Patient Care Teams Name Effective Dates (start - stop) Status Members No Information
[2023-01-06 02:45] VITALS: PULSE 84; RESP 18; TEMP 36.7; O2SAT 98
--- NOTE | 2023-01-06 02:56 | ED.NURSE ---
pt arrived via ems, crying and anxious because her phone was left with her friend and she had no way to get a hold of her parents. pt had no other complaints. pt parents were called and pt anxiety level decreased, pt alert and talking, oriented. pt was discharged with 3 friends who were stating they are sober. pt and mother was in agreeance to this plan via phone video conversation. pt left ambulatory with friends.
== END 2023-01-06 03:01 | disposition home or self-care (01) ==
PROVIDERS: Emergency Provider Internal Medicine
DX: F10.129 Alcohol abuse with intoxication, unspecified (principal)
CPT/HCPCS: 99283

== ENCOUNTER 2024-02-17 19:57 | Outpatient (CLI) | payer SELFPAY | END 2024-02-17 19:58 | disposition home or self-care (01) | LOC: AMB 02-22 06:45 | PROVIDERS: Visit Provider Emergency Medicine Emergency Medical Services | DX: R56.9 Unspecified convulsions (principal) | CPT/HCPCS: A0425; A0429 ==

== ENCOUNTER 2024-02-17 20:32 | Emergency (ER) | payer SELFPAY ==
--- OUTSIDE RECORDS SUMMARY | 2024-02-17 20:35 | XMS_ITS | Patient Health Record ---
Author Organization [facility] Address [address] [place] [address] Care Team Providers Care Dietary Tech Name Role Phone Amita Dyer Primary Care Provider Mario JayonIrais Unavailable [phone] Allergies No Known Allergies Reason For Referral No Information Medications Medication SIG (Take, Route, Frequency, Duration) Notes [...] day for 30 day(s) Active Microgestin FE /20 1-20 MG-MCG 1 tablet Orally Once a day for 28 day(s) Active Omeprazole 20 MG 2 capsule 30 minutes before morning meal Orally Once a day Active Multivitamin Adult - 1 tablet Orally Once a day for 30 day(s) Active Cymbalta 30 MG 1 capsule Orally Once a day for 30 day(s) Active Problems Problem Type SNOMED Code ICD Code Onset Dates Problem Status W/U Status Risk Notes Problem Anemia (145010730) Anemia (D64.9) Active confirmed Problem Fibromyalgia (906999068) Fibromyalgia affecting multiple sites (M79.7) Active confirmed Problem Antibody studies abnormal (008311145) Abnormal antibody titer (R76.8) Active confirmed Problem Moderate major depression (200105) Moderate major depression (F32.1) Active confirmed Plan Of Treatment No Information Medical (General) History Medical History History ICD Code Moderate major depression F32.1 ADHD-combined type
[2024-02-17 20:42] VITALS: BP 131/89; PULSE 120; RESP 16; TEMP 37.2; O2SAT 98; BMI 21.1
--- NOTE | 2024-02-17 21:27 | ED.GENADULT ---
HPI - General Adult General Chief complaint: Unspecified Complaint, Adult Stated complaint: seizure Time Seen by Provider: 02/17/24 20:43 History of Present Illness HPI narrative: This 23-year-old female comes in because of the episode that occurred earlier where she states that she was going down some steps and when doing so she gets some spasms in both of her legs. She has been having symptoms like this over the past fiber 6 days or so. She also grew lightheaded today and that triggered a visit here to the ER. She did not have loss of consciousness. She does not report any injury event recently. She states that she does have a history of traumatic brain injury. She also reports a uncertain history or diagnosis of lupus and did take hydroxychloroquine for a while that did not seem to help her. She denies any new medications and does not take alcohol or street drugs at least recently. She arrives here with normal vital signs. She is no longer having any such symptoms. Related Data Home Medications ?Medication ?Instructions ?Recorded ?Confirmed bupropion HCl 300 mg 24 hr tablet, 300 mg PO DAILY 01/06/23 01/21/24 extended release dextroamphetamine-amphetamine 10 1 tab PO DAILY 01/06/23 01/21/24 mg tablet omeprazole 40 mg capsule,delayed 40 mg PO DAILY 01/06/23 01/21/24 release sertraline 100 mg tablet 100 mg PO DAILY 01/06/23 01/21/24 norethindrone 1 mg-ethinyl 1 tab PO DAILY 01/21/24 01/21/24 estradiol 20 mcg (24)-iron 75 mg (4) tablet (Sloane 24 Fe) Previous Rx's ?Medication ?Instructions ?Recorded cephalexin 500 mg capsule 500 mg PO TID #21 caps 01/21/24 Allergies Allergy/AdvReac Type Severity Reaction Status Date / Time No Known Drug Allergies Allergy Verified 01/21/24 14:38 Review of Systems Status of ROS: Reports: 10 or more systems reviewed and unremarkable except as noted in History and below Narrative: Constitutional: No fevers, no weight gain or loss. Eyes: No discharge. No vision changes. HENT: No congestion, no sore throat, no ear pain. Cardiovascular: No chest pain, no palpitations. Respiratory: No shortness of breath, no wheezes, no cough. Gastrointestinal: No abdominal pain, no vomiting, no diarrhea. Genitourinary: No dysuria, no hematuria. Musculoskeletal: Normal range of motion. Skin: No rashes, no pruritis. Neurological: No dizziness, weakness, sensory change, speech change. Endo/Heme/Allergies: No bruising or bleeding. No polydipsia. Pysch: no suicidality, no anxiety, no insomnia. All other systems reviewed and are negative. [facility] Medical History (Updated 02/17/24 @ 21:33 by Roldan Cope MD) Fibromyalgia ?M79.7 - Fibromyalgia (ICD-10) Social History Smoking Status: Never smoker Do you use any of these nicotine containing products: None Second hand tobacco smoke exposure: No How often do you have a drink containing alcohol: monthly or less How many standard drinks containing alcohol do you have on a typical day: 1 or 2 AUDIT-C Alcohol total score: 1 Non-prescribed substance use: marijuana (any form) Exam Narrative: Exam Narrative: Constitutional: Well-developed, well-nourished, no acute distress. HEENT: Normocephalic, atraumatic. Neck: Normal range of motion. Nontender. Supple. Heart: Regular. No murmurs. Normal rate. Intact distal pulses. Lungs: Clear to auscultation. No chest discomfort. No wheezes, rhonchi, or rales. Abdomen: Normal bowel sounds. Nontender. No rebound tenderness. Genitalia: Deferred. Back: No midline tenderness. Normal range of motion. Extremities: Normal range of motion. No injury. Skin: Intact. No rash. Warm. No erythema or pallor. Neurologic: No altered sensation. No weakness. Alert and oriented. Insert neuro exam Psychiatric: No suicidality. No anxiety or depression. No insomnia. Nursing notes and vitals signs are reviewed. Const: Vital Signs, click to edit/add: Vital Signs - 24 hr 02/17/24 20:42 Temperature 99.0 F Pulse Rate [Pulse Oximeter] 120 H Respiratory Rate 16 Blood Pressure [Ri ght Upper Arm] 131/89 Pulse Oximetry 98 Oxygen Delivery Me thod Room Air Course Vital Signs Vital signs: Initial Vital Signs Temperature 99.0 F 02/17/24 20:42 Temperature Source Temporal Artery Scan 02/17/24 20:42 Pulse Rate 120 H 11/11/24 20:42 Respiratory Rate 16 02/17/24 20:42 Blood Pressure 131/89 02/17/24 20:42 Blood Pressure Mean 103 02/17/24 20:42 Blood Pressure Position Sitting 02/17/24 20:42 Pulse Oximetry 98 02/17/24 20:42 Oxygen Delivery Method Room Air 02/17/24 20:42 Vital Signs Temperature 99.0 F 02/17/24 20:42 Pulse Rate 120 H 02/17/24 20:42 Respiratory Rate 16 02/17/24 20:42 Blood Pressure 131/89 02/17/24 20:42 Pulse Oximetry 98 02/17/24 20:42 Oxygen Delivery Method Room Air 02/17/24 20:42 Temperature 99.0 F 02/17/24 20:42 Pulse Rate 120 H 02/17/24 20:42 Respiratory Rate 16 02/17/24 20:42 Blood Pressure 131/89 02/17/24 20:42 Pulse Oximetry 98 02/17/24 20:42 Oxygen Delivery Method Room Air 02/17/24 20:42 Medical Decision Making MDM Narrative Medical decision making narrative: This 23-year-old female comes in with complaints of some muscle spasms and feeling lightheadedness in a certain episode. Some people around her thought that she might be having a seizure. She did not have any loss of consciousness or postictal symptoms. Her symptoms are not suspicious for any type of seizure activity and she does not have a prior history of such. She is no longer having any symptoms but states that it if she attempts to ambulate down steps then she feels like she gets some tightness or spasms in her legs. She does report a history of fibromyalgia. I did discuss options for labs and imaging with the patient. The patient's mother was also part of this conversation by phone. In a process of shared decision making these studies were declined. The patient did receive [facility] prescription for some Flexeril that may help with some muscle spasms. She also received a prescription for Medrol Dosepak. Discharge Plan Discharge Clinical Impression: Other muscle spasm Patient Disposition: Home, Self-Care Condition: Stable Additional Instructions: Take medication as needed and indicated. Follow up with MD or return if symptoms are recurrent or worsening. Prescriptions: No Action Sloane 24 Fe 1 mg-20 mcg (24)/75 mg (4) tablet 1 tab PO DAILY cephalexin 500 mg capsule 500 mg PO TID Qty: 21 0RF dextroamphetamine-amphetamine 10 mg tablet 1 tab PO DAILY sertraline 100 mg tablet 100 mg PO DAILY omeprazole 40 mg capsule,delayed release(DR/EC) 40 mg PO DAILY bupropion HCl 300 mg tablet extended release 24 hr 300 mg PO DAILY Follow Up/Referrals: Provider,Not a Local [Primary Care Provider] - Stand Alone Forms: [facility] Info Instructions
[2024-02-17 22:00] VITALS: BP 124/74; PULSE 91; RESP 16; TEMP 37.2; O2SAT 98
[2024-02-17 22:04] VITALS: BP 124/74; PULSE 91; RESP 16; TEMP 37.2
== END 2024-02-17 22:04 | disposition home or self-care (01) ==
LOC: ED 21:40
PROVIDERS: Emergency Provider Emergency Medicine Emergency Medical Services
DX: M62.838 Other muscle spasm (principal)
CPT/HCPCS: 99283; 99284